=== PATIENT | male | born 1950 | race Caucasian/White ===

== ENCOUNTER 2020-07-15 06:41 | Inpatient (IN) | payer OTHER, SELFPAY ==
[2020-07-15] VITALS (8 sets, daily range): BP systolic 106–145; BP diastolic 61–86; PULSE 74–95; RESP 16–20; TEMP 36.1–37.2; O2SAT 95–99; BMI 35.9; BMI 32.5
--- NOTE | 2020-07-15 06:53 | CT_ITS ---
EXAMINATION: CT ABDOMEN AND PELVIS WITH CONTRAST CLINICAL INFORMATION: Upper abdominal pain COMPARISON: Previous CT of the abdomen and pelvis August 2008 TECHNIQUE: Multidetector volumetric images were obtained from the superior aspect of the liver through the pubic symphysis following administration 85 mL of Omnipaque 350 intravenous contrast. Sagittal and coronal reformatted images were obtained on the technologist's workstation. Oral contrast: Yes This CT examination was performed using dose optimization techniques as appropriate, variously including the following: *Automated exposure control *Adjustment of mA and/or kV according to patient size (this includes techniques or standardized protocols for targeted exams where dose is matched to indication/reason for exam; i.e. extremities or head) *Use of iterative reconstruction technique DLP: 796 mGy-cm FINDINGS: LUNG BASES: There are increased peripheral interstitial markings at the lung bases. There is a right posterior medial diaphragmatic hernia containing fat. LIVER, GALLBLADDER, AND BILIARY TREE: The liver is low in attenuation suggestive of fatty infiltration. There are several low-attenuation liver lesions. The largest measures 1 cm in the posterior segment of the right lobe of the liver axial image 17 series 3. Hounsfield units measure 15 following contrast and is probably represent cysts. The gallbladder is upper normal in size. There are gallstones in the gallbladder. The gallbladder wall appears thickened and indistinct. There is a stranding of the pericholecystic fat. Findings are suggestive of acute cholecystitis. There may be a stone in the cystic duct axial image 25 series 3. Inflammatory changes extend to the griselda hepatis region. No common bile duct stone is appreciated by CT scan. There is no intra or extrahepatic biliary duct dilatation. PANCREAS: Unremarkable. SPLEEN: Unremarkable. ADRENAL GLANDS: Unremarkable. KIDNEYS AND URETERS: There is a 1 cm low-attenuation lesion exophytic to the lower pole of the right kidney axial image 43 series 3. Hounsfield units following contrast measure 55 is not compatible with a simple cyst. Differential would include a solid lesion and complex cyst. There is a 1.2 cm simple appearing cyst in the lower pole of the left kidney. BLADDER: The bladder is well-distended. The prostate gland is enlarged and protrudes into the base of the bladder. GASTROINTESTINAL TRACT: There is diverticulosis of the colon. No evidence of diverticulitis is seen. There are fluid and stool-filled loops of distal small bowel and small bowel feces sign. No caliber changes seen in this probably represents stasis as opposed to mechanical obstruction. Small and large bowel is otherwise unremarkable. The appendix appears to have been removed. The stomach is slightly distended and fluid-filled. ABDOMINAL WALL: There is a small umbilical hernia containing fat. LYMPH NODES: Normal. VASCULAR: There is evidence of atherosclerotic disease. No aneurysm is seen. PELVIC VISCERA: The prostate gland is enlarged and protrudes into the base of the bladder. The prostate gland measures 6.4 x 7.4 cm in transverse and AP dimension. OSSEOUS STRUCTURES: There are degenerative changes of the spine. CT/CT abdomen pelvis w con IMPRESSION: Findings suggestive of acute cholecystitis. This could be confirmed with a HIDA scan or ultrasound if clinically indicated. Fatty liver. Probable liver cysts. 1 cm low-attenuation lesion in the lower pole of the right kidney not compatible with a simple cyst. This may represent a solid renal mass or a complex cyst. Additional renal imaging for further characterization recommended. Small left renal cyst. Enlarged prostate gland that protrudes into the base of the bladder.
--- NOTE | 2020-07-15 06:54 | ECG_ITS ---
Test Reason : ABD PAIN Blood Pressure : / mmHG Vent. Rate : 085 BPM Atrial Rate : 085 BPM P-R Int : 196 ms QRS Dur : 072 ms QT Int : 348 ms P-R-T Axes : 050 025 043 degrees QTc Int : 414 ms Normal sinus rhythm Normal ECG When compared with ECG of 23-AUG-2008 10:27, No significant change was found Referred By: Kianna Ram Electronically Signed By:DESIREE MARTE
--- NOTE | 2020-07-15 07:00 | ED_ITS ---
HPI - Abdominal Pain General Chief Complaint: Abdominal Pain Stated Complaint: UPPER ABD PAIN Time Seen by Provider: 07/15/20 06:52 Source: patient Mode of arrival: ambulatory Limitations: no limitations History of Present Illness MD elicited complaint: abdominal pain Onset (ago): hour(s) (several hours started around 820pm last night) Pain Consistency: constant Location: epigastric, LUQ and RUQ Severity: severe Quality: stabbing Radiation: none Migration to: no migration Exacerbating factors: vomiting and movement Relieving factors: nothing Associated symptoms: nausea and vomiting Related Data Home Medications Medication Instructions Recorded Confirmed empagliflozin [Jardiance] 10 mg PO DAILY 07/15/20 07/15/20 glipizide 1 tab PO BID 07/15/20 07/15/20 lisinopril 10 mg PO DAILY 07/15/20 07/15/20 metformin 1,000 mg PO BID 07/15/20 07/15/20 simvastatin 40 mg PO BEDTIME 07/15/20 07/15/20 Allergies Allergy/AdvReac Type Severity Reaction Status Date / Time No Known Allergies Allergy Mild NKA Unverified 04/25/20 15:10 Review of Systems Review of Systems Constitutional : No Weight loss, No Fever, No Chills ENT/Mouth : No sore throat, No Rhinorrhea Eyes: No Swelling, No Redness Cardiovascular : No Chest Pain, No SOB, NoEdema Respiratory : No Cough, No Sputum, No Wheezing Gastrointestinal : Positive Nausea, Positive Vomiting, no Diarrhea, positive abdominal Pain, No Hematochezia, No Melena Genitourinary : No Dysuria, No Urinary Frequency, No Hematuria, No Urgency Musculoskeletal : No joint pain, No Myalgias, No Joint Swelling Skin : No Skin Lesions, No rash Neuro : No Weakness, No Numbness, No Dizziness, No Headache Psych : No Anxiety/Panic, No Depression Heme/Lymph: No Bruising, No Lymphadenopathy Endocrine : No Polyuria, No Polydipsia All other systems reviewed and are negative. Physical Exam Vital Signs: Vital Signs: Last Vital Signs Temp 97 F 07/15/20 06:44 Pulse 82 07/15/20 08:13 Resp 16 07/15/20 08:13 BP 145/74 H 07/15/20 06:44 Pulse Ox 97 07/15/20 08:13 Body Mass Index 35.9 Appearance: Alert. Oriented X3. in pain, mild acute distress Eyes: Pupils equal, round and reactive to light. ENT: Pharynx normal. Neck: Normal inspection. Neck supple. CVS: Normal heart rate and rhythm. Pulses normal. Respiratory: No respiratory distress. Breath sounds normal. Abdomen: Soft and moderate ttp in RUQ and epigastric pain positive guarding no rebound Skin: Skin warm and dry. Normal skin color. Normal skin turgor. Extremities: No lower extremity edema. No calf ttp Neuro: Oriented X 3. No motor deficit. No sensory deficit. Course Course Course Narrative: given markedly high WBC count, empiric zosyn ordered call to surgery 841 AM given initial review of his CT scan concerning for cholecystitis - pending call back, patient has been kept NPO, doing better with pain medications. 916AM Dr. Sanchez requesting US will admit for further management MDM - Abdominal Pain MDM Narrative Medical decision making narrative: 69 yo male with HTN, DM hx of appendectomy has upper abdominal pain with vomiting since last night - very ttp in epigastric and RUQ area at this time will need labs, EKG, IVF, CT scan to evaluate GB and pancreas, IV dilaudid for pain - dispo per results and findings. Differential Diagnosis Differential diagnosis: Likely abdominal pain, gastritis, pancreatitis and peptic ulcer disease Lab Data Result diagrams: 07/15/20 07:08 07/15/20 07:08 Labs: Lab Results 07/15/20 07/15/20 07/15/20 Range/Units 07:08 07:08 07:08 WBC 23.2 H (4.8-10.8) X10*3/uL RBC 5.79 (4.60-5.80) X10*6/uL Hgb 17.9 (14.0-18.0) g/dl Hct 52.4 H (42-52) % MCV 90.5 (80-98) fL MCH 30.9 (27.0-33.0) pg MCHC 34.2 (31.0-36.0) g/dl RDW 12.9 (11.0-16.0) % Plt Count 277 (160-400) X10*3/uL MPV 9.8 (9.4-12.4) fL Immature Gran % (Auto) 0.5 H (0.0-0.4) % Neut % (Auto) 89.7 H (45-73) % Lymph % (Auto) 3.4 L (20-40) % Citrus % (Auto) 6.2 (2-11) % Eos % (Auto) 0.0 (0-4) % Baso % (Auto) 0.2 (0-2) % Lymph # (Auto) 0.8 L (1.2-4.9) X10*3/uL [place] # (Auto) 1.4 H (0.1-1.2) X10*3/uL Eos # (Auto) 0.0 (0.0-0.4) X10*3/uL Baso # (Auto) 0.0 (0.0-0.2) X10*3/uL Abs Immat Gran (auto) 0.12 H (0.00-0.03) X10*3/uL Absolute Neuts (auto) 20.8 H (2.0-8.3) X10*3/uL Absolute Nucleated RBC 0.000 (0.0-0.012) X10*3/uL Nucleated RBC % (auto) 0.0 (0.0-0.2) /100WBC Smear Tech's Comments VERIFIED PT 12.0 (10.8-13.0) SEC INR 1.0 (0.9-1.1) APTT 35.5 (24.1-38.0) SEC Sodium 138 (135-145) mmol/L Potassium 4.9 (3.3-5.1) mmol/l Chloride 97 (96-108) mmol/L Carbon Dioxide 27 (22-29) mmol/L Anion Gap 19 (12-20) BUN 21 H (9-16) mg/dL Creatinine 1.34 (0.5-1.4) mg/dL Estim Creat Clear Calc 63.7 Estimated GFR 53 Random Glucose 240 H (60-115) mg/dL Lactic Acid (0.5-2.0) mmol/L Calcium 9.7 (8.4-10.2) mg/dL Magnesium (1.6-2.6) mg/dL Total Bilirubin (0.0-1.0) mg/dL Direct Bilirubin (0.0-0.5) mg/dL AST (5-37) U/L ALT (0-40) U/L Alkaline Phosphatase (39-117) U/L Troponin I High Sens (<3.5-35.0) ng/L Total Protein (6.5-8.0) g/dL Albumin (3.5-5.0) g/dL Lipase (8-78) U/L 07/15/20 07/15/20 07/15/20 Range/Units 07:08 07:08 07:08 WBC (4.8-10.8) X10*3/uL RBC (4.60-5.80) X10*6/uL Hgb (14.0-18.0) g/dl Hct (42-52) % MCV (80-98) fL MCH (27.0-33.0) pg MCHC (31.0-36.0) g/dl RDW (11.0-16.0) % Plt Count (160-400) X10*3/uL MPV (9.4-12.4) fL Immature Gran % (Auto) (0.0-0.4) % Neut % (Auto) (45-73) % Lymph % (Auto) (20-40) % Citrus % (Auto) (2-11) % Eos % (Auto) (0-4) % Baso % (Auto) (0-2) % Lymph # (Auto) (1.2-4.9) X10*3/uL [place] # (Auto) (0.1-1.2) X10*3/uL Eos # (Auto) (0.0-0.4) X10*3/uL Baso # (Auto) (0.0-0.2) X10*3/uL Abs Immat Gran (auto) (0.00-0.03) X10*3/uL Absolute Neuts (auto) (2.0-8.3) X10*3/uL Absolute Nucleated RBC (0.0-0.012) X10*3/uL Nucleated RBC % (auto) (0.0-0.2) /100WBC Smear Tech's Comments PT (10.8-13.0) SEC INR (0.9-1.1) APTT (24.1-38.0) SEC Sodium (135-145) mmol/L Potassium (3.3-5.1) mmol/l Chloride (96-108) mmol/L Carbon Dioxide (22-29) mmol/L Anion Gap (12-20) BUN (9-16) mg/dL Creatinine (0.5-1.4) mg/dL Estim Creat Clear Calc Estimated GFR Random Glucose (60-115) mg/dL Lactic Acid 2.6 H* (0.5-2.0) mmol/L Calcium (8.4-10.2) mg/dL Magnesium 2.1 (1.6-2.6) mg/dL Total Bilirubin 1.4 H (0.0-1.0) mg/dL Direct Bilirubin 0.4 (0.0-0.5) mg/dL AST 24 (5-37) U/L ALT 36 (0-40) U/L Alkaline Phosphatase 79 (39-117) U/L Troponin I High Sens < 3.5 (<3.5-35.0) ng/L Total Protein 7.6 (6.5-8.0) g/dL Albumin 4.5 (3.5-5.0) g/dL Lipase 41 (8-78) U/L ECG Data Attestation: I personally reviewed and interpreted this ECG as follows: ECG interpretation date: 07/15/20 ECG interpretation time: 07:25 Interpretation: Rate: 85 Rhythm: NSR [place]: normal Normal P waves. Normal BELÉN. Normal QRS complex. ST T wave : normal , no DEJAN qTC: normal prior studies: no acute ischemia The study has been interpreted contemporaneously by me. . Critical Care Time Critical Care Time Critical Care Time: Yes Total Critical Care Time: 35 Attestation: 2 L of IVF, IV antibiotics, IV dilaudid, surgical consultation. I attest to this time spent taking care of the patient Discharge Plan Discharge Clinical Impression: Acidosis, lactic, Acute cholecystitis Abdominal pain Qualifiers: Abdominal location: right upper quadrant Qualified Code(s): R10.11 - Right upper quadrant pain Leukocytosis Qualifiers: Leukocytosis type: unspecified Qualified Code(s): D72.829 - Elevated white blood cell count, unspecified Patient Disposition: Admitted As Inpatient [facility] Past Medical History Attestation statement: The following information was validated with the patient. Medical History Bilateral knee pain Diabetes HTN (hypertension) Surgical History History of appendectomy Social History Social History (Updated 07/15/20 @ 07:02 by Kianna Ram DO) Alcohol intake: current Alcohol intake frequency: 3 or more drinks per day Alcohol type: beer Smoking Status: Former smoker Use of substances other than those prescribed or required for medical reasons: No Advance Directives: No Advance Directives Information Provided: No
[2020-07-15] MEDS: 0.9 % Sodium Chloride 1,000 ML 999 ML IVCONT ×2 (07:16→08:12)
[2020-07-15] MEDS: ondansetron HCL 4 MG/2 ML VIAL IVPUSH (07:16)
[2020-07-15] MEDS: HYDROmorphone HCl 1 MG/ML SYRINGE IVPUSH ×2 (07:16→10:30)
[2020-07-15 07:17] LABS: Basophils Percent Auto 0.2 % (0-2); Hematocrit 52.4 % (42-52); Hemoglobin 17.9 g/dl (14.0-18.0); Imm Gran Abs Auto 0.12 X10*3/uL (0.00-0.03); Imm Gran Pct Auto 0.5 % (0.0-0.4); Lymphocytes Absolute Auto 0.8 X10*3/uL (1.2-4.9); Lymphocytes Percent Auto 3.4 % (20-40); MANUAL DIFF FLAG SCAN; Mean Corpuscular HGB Conc 34.2 g/dl (31.0-36.0); Mean Corpuscular Hemoglobin 30.9 pg (27.0-33.0); Mean Corpuscular Volume 90.5 fL (80-98); Mean Platelet Volume 9.8 fL (9.4-12.4); Monocytes Absolute Auto 1.4 X10*3/uL (0.1-1.2); Monocytes Percent Auto 6.2 % (2-11); Neutrophils Absolute Auto 20.8 X10*3/uL (2.0-8.3); Neutrophils Percent Auto 89.7 % (45-73); Platelet Count 277 X10*3/uL (160-400); Red Blood Count 5.79 X10*6/uL (4.60-5.80); Red Cell Distribution Width 12.9 % (11.0-16.0); SCAN SMEAR FLAG 1; White Blood Count 23.2 X10*3/uL (4.8-10.8)
[2020-07-15 07:40] LABS: Partial Thromboplastin Time 35.5 SEC (24.1-38.0)
[2020-07-15 07:45] LABS: SLIDE REVIEW VERIFIED
[2020-07-15 07:47] LABS: Anion Gap 19 (12-20); Blood Urea Nitrogen 21 mg/dL (9-16); Calcium 9.7 mg/dL (8.4-10.2); Carbon Dioxide 27 mmol/L (22-29); Chloride 97 mmol/L (96-108); Creatinine Clr Calc Pharmacy 63.7; Estimated Glomerular Filt Rate 53; Glucose Random 240 mg/dL (60-115); Potassium 4.9 mmol/l (3.3-5.1); Sodium 138 mmol/L (135-145)
[2020-07-15 07:50] LABS: Alanine Aminotransferase 36 U/L (0-40); Albumin Level 4.5 g/dL (3.5-5.0); Alkaline Phosphatase 79 U/L (39-117); Aspartate Amino Transferase 24 U/L (5-37); Bilirubin Direct 0.4 mg/dL (0.0-0.5); Bilirubin Total 1.4 mg/dL (0.0-1.0); Lipase 41 U/L (8-78); Magnesium 2.1 mg/dL (1.6-2.6); Total Protein 7.6 g/dL (6.5-8.0)
[2020-07-15 07:52] LABS: Troponin-I High Sensitivity < 3.5 ng/L (<3.5-35.0)
[2020-07-15] MEDS: Piperacillin Sodium/Tazobactam 3.375 GM in 0.9 % Sodium Chloride 50 ML IV ×2 (07:54→18:14)
[2020-07-15 08:04] LABS: Lactic Acid 2.6 mmol/L (0.5-2.0)
--- NOTE | 2020-07-15 08:13 | PC.NURSE ---
pt sts feeling better after pain medication. awaiting ct scan.
[2020-07-15] MEDS: iohexoL 350 MG/ML 100 ML INFUS..BTL 85 ML IV (08:42)
--- NOTE | 2020-07-15 09:11 | PC.NURSE ---
general surgeon at bedside for eval.
[2020-07-15 09:12] LABS: Reflex Lactate? Lactic Acid Added
--- NOTE | 2020-07-15 09:14 | US_ITS ---
EXAMINATION: US ABDOMEN LIMITED CLINICAL INFORMATION: Reading cord pain.. COMPARISON: None TECHNIQUE: Real-time imaging of the right upper quadrant abdominal viscera. FINDINGS: PANCREAS: Pancreas is obscured by overlying gas. LIVER: There is anechoic cyst right lobe measuring 1.2 x 1.2 x 1.2 cm. The liver size and contour is normal. There is diffuse increased liver echogenicity hard to penetrate.No focal hepatic lesion. There is no intrahepatic biliary duct dilatation seen. GALLBLADDER: A small echogenic stones and echogenic bile. Gallbladder wall thickness measures 0.9 cm. There is pericholecystic fluid collection. The gallbladder is distended COMMON BILE DUCT: Normal in caliber measuring 1.0 cm in diameter. RIGHT KIDNEY: Normal. No hydronephrosis. No renal calculi or focal parenchymal lesions. The kidney measures 11.8 cm in maximum dimension. FREE FLUID: None. US/US abdomen limited IMPRESSION: Cholelithiasis, echogenic gallbladder with with wall thickening and pericholecystic fluid collection suggestive of cholecystitis. Correlate with clinical exam. Diffuse hepatic steatosis with small anechoic cyst right hepatic lobe. Pancreas is not seen well.
[2020-07-15 09:17] LABS: COVID-19 Test Negative (Negative); IDNOW Serial# 9DD0AD1C
[2020-07-15 09:37] LABS: Glucose Urine UA >=1000 MG/DL (NEG); Leukocyte Esterase Urine NEG (NEG); Nitrite Urine NEG (NEG); Specific Gravity - Urine <= 1.005 (1.005-1.025); Urine Blood NEG (NEG); Urine Ketones NEG (NEG); Urine Protein NEG (NEG-TRACE)
[2020-07-15 09:46] LABS: Appearance Urine CLEAR; Color Urine YELLOW
[2020-07-15 09:59] LABS: RBC Urine 0 /HPF (0); Squamous Epithelial Cell Urine TRACE /LPF; WBC Urine 0 /HPF (0-4)
--- NOTE | 2020-07-15 10:15 | P.HPGS_ITS ---
History of Present Illness History of Present Illness Date of Service: 07/15/20 Chief complaint: UPPER ABD PAIN Narrative: Selvin Pereira JR is a 69 year old male presenting with complaints of abdominal pain in the upper abdomen starting last evening at approximately 20:00. He reports the pain started after eating dinner several hours prior. He reports several episodes of nausea and vomiting including upon presentation to the emergency department. He denies a previous history of similar symptoms. Upon presentation to the emergency department he was noted to be tender in the right upper quadrant. WBC was noted to be markedly elevated. A CT of the abdomen and pelvis revealed thickened gallbladder with gallstones within the gallbladder. A stone was noted in the cystic duct but the common bile duct was felt to be normal in size. Patient is admitted to the surgical service for further management of acute cholecystitis. Review of Systems Constitutional: Constitutional: Denies chills, Denies fever(s), Denies headache(s) and Denies poor appetite ENT: Denies dizziness and Denies headache(s) Cardiovascular: Cardiovascular: Denies chest pain, Denies rapid heart rate, Denies palpitations and Denies slow heart rate Respiratory: Respiratory: Denies chest congestion, Denies cough, Denies pain on inspiration and Denies wheezing Gastrointestinal: Gastrointestinal: Reports abdominal pain, Denies bloating, Denies change in stool character, Denies constipation, Denies diarrhea, Reports nausea, Reports vomiting and Denies hematemesis Musculoskeletal: Musculoskeletal: Denies back pain, Denies arthralgias, Denies joint swelling and Denies numbness Integumentary/Breasts: Skin/Breast: Denies change in pigmentation, Denies erythema and Denies rash Neurologic: Denies confusion, Denies dizziness, Denies headache(s) and Denies numbness Psychiatric: Psychiatric: Denies anxiety, Denies confusion and Denies depression Endocrine: Endocrine: Denies palpitations Hematologic/Lymphatic: Hematologic/Lymphatic: Denies easy bleeding, Denies easy bruising and Denies lymphadenopathy Allergic/Immunologic: Allergic/Immunologic: Denies wheezing PMFSH Past Medical History Medical History Bilateral knee pain Diabetes HTN (hypertension) Surgical History Surgical History History of appendectomy History of bilateral knee arthroplasty Social History Social History Alcohol intake: current Alcohol intake frequency: 3 or more drinks per day Alcohol type: beer Smoking Status: Former smoker Use of substances other than those prescribed or required for medical reasons: No Advance Directives: No Advance Directives Information Provided: No Meds Allergies Allergy/AdvReac Type Severity Reaction Status Date / Time No Known Allergies Allergy Mild NKA Unverified 04/25/20 15:10 Home Medications Medication Instructions Recorded Confirmed Type empagliflozin [Jardiance] 10 mg PO DAILY 07/15/20 07/15/20 History glipizide 1 tab PO BID 07/15/20 07/15/20 History lisinopril 10 mg PO DAILY 07/15/20 07/15/20 History metformin 1,000 mg PO BID 07/15/20 07/15/20 History simvastatin 40 mg PO BEDTIME 07/15/20 07/15/20 History Physical Exam Vital Signs: Vital Signs: Last Vital Signs Temp 97 F 07/15/20 06:44 Pulse 82 07/15/20 08:13 Resp 16 07/15/20 08:13 BP 145/74 H 07/15/20 06:44 Pulse Ox 97 07/15/20 08:13 Body Mass Index 35.9 Const: General: No confusion Nutritional Appearance: well nourished Orientation/consciousness: No confusion Eyes: Sclerae: sclerae normal EOM: EOMs intact bilaterally Neck: Neck: Yes normal visual inspection Resp: Effort & Inspection: normal respiratory effort, no cough and no respiratory distress Cardio: Jugular venous distension: no JVD Rate: regular rate Rhythm: regular rhythm GI: Inspection: Yes normal to inspection Palpation (GI): Soft to palpation, Tenderness to palpation present (GI) in the RUQ and Gudino's sign positive, no guarding and not rigid Percussion: Yes normal to percussion Auscultation: normal bowel sounds Skin: General skin exam: dry skin Rashes: no rashes Neuro: General: No confusion Extrem: General: Yes full ROM and Yes no clubbing, cyanosis or edema Results Results Labs: Short CBC 07/15/20 Range/Units 07:08 WBC 23.2 H (4.8-10.8) X10*3/uL Hgb 17.9 (14.0-18.0) g/dl Hct 52.4 H (42-52) % Plt Count 277 (160-400) X10*3/uL BMP 07/15/20 07:08 Sodium 138 Potassium 4.9 Chloride 97 Carbon Dioxide 27 BUN 21 H Creatinine 1.34 Calcium 9.7 Liver Function 07/15/20 Range/Units 07:08 Total Bilirubin 1.4 H (0.0-1.0) mg/dL Direct Bilirubin 0.4 (0.0-0.5) mg/dL AST 24 (5-37) U/L ALT 36 (0-40) U/L Alkaline Phosphatase 79 (39-117) U/L Albumin 4.5 (3.5-5.0) g/dL Urine 07/15/20 Range/Units 09:26 Urine Color YELLOW Urine Appearance CLEAR Urine pH 7.0 (5.0-8.0) Ur Specific [place] <= 1.005 (1.005-1.025) Urine Protein NEG (NEG-TRACE) MG/DL Urine Glucose (UA) >=1000 H (NEG) MG/DL Assessment and Plan (1) Acute cholecystitis: Status: Acute 69-year-old male patient presenting with complaints of abdominal pain in the right upper quadrant found to be tender in the right upper quadrant with a positive Gudino sign. Findings are suggestive of acute cholecystitis. CT of the abdomen and pelvis reveals a thickened gallbladder with stones within the gallbladder. An ultrasound will be ordered to further evaluate the wall thickness. Patient will be admitted to the surgical service for further management. He will be placed on Zosyn 3.75 mg q.6 hours. Hospitalist consultation will be requested for management of patient's diabetes. A laparoscopic or possible open cholecystectomy would be anticipated in the next 1-2 days.
--- NOTE | 2020-07-15 10:40 | PM.IMCN ---
History of Present Illness Data of Consult Service Date: 07/15/20 Requesting physician: Edilson Sanchez Primary Care Provider: MD MEENAKSHI Song Reason for consult: Medical Management 69 year old man with history of diabetes, hypertension and hyperlipidemia admitted by general surgery for acute cholecystitis. He presented with abdominal pain especially after eating. He developed pain around 8pm and had episodes of nausea and vomiting. Abdominal CT was suggestive of acute cholecystitis. WBC 23.2, lactic 2.6. He was given Zosyn and will be transferred to the medical floor. Review of Systems Review of Systems: Denies any recent fever chills or decrease in appetite respiratory denies any shortness of breath coverage production cardiovascular is adjustment of any PND or edema gastrointestinal see above genitourinary denies any dysuria frequency or hematuria musculoskeletal denies any joint pain or swelling neuropsych denies any weakness or seizures all other systems reviewed are negative Constitutional: Constitutional: Denies headache(s) ENT: Denies dizziness and Denies headache(s) Musculoskeletal: Musculoskeletal: Denies numbness Neurologic: Denies confusion, Denies dizziness, Denies headache(s) and Denies numbness Psychiatric: Psychiatric: Denies confusion [facility] Medical History (Updated 07/15/20 @ 11:14 by Christelle Roca NP) Bilateral knee pain Diabetes HTN (hypertension) Hyperlipidemia Surgical History History of appendectomy History of bilateral knee arthroplasty Social History Alcohol intake: current Alcohol intake frequency: 3 or more drinks per day Alcohol type: beer Smoking Status: Former smoker Use of substances other than those prescribed or required for medical reasons: No Advance Directives: No Advance Directives Information Provided: No Meds Allergies Allergy/AdvReac Type Severity Reaction Status Date / Time No Known Allergies Allergy Mild NKA Unverified 04/25/20 15:10 Home Medications Medication Instructions Recorded Confirmed Type empagliflozin [Jardiance] 10 mg PO DAILY 07/15/20 07/15/20 History glipizide 1 tab PO BID 07/15/20 07/15/20 History lisinopril 10 mg PO DAILY 07/15/20 07/15/20 History metformin 1,000 mg PO BID 07/15/20 07/15/20 History simvastatin 40 mg PO BEDTIME 07/15/20 07/15/20 History Physical Exam Vital Signs and Narrative: Vital Signs: Last Vital Signs Temp 97 F 07/15/20 06:44 Pulse 82 07/15/20 08:13 Resp 16 07/15/20 08:13 BP 145/74 H 07/15/20 06:44 Pulse Ox 97 07/15/20 08:13 Body Mass Index 35.9 Appearing in no acute distress head is normocephalic atraumatic eyes pupils are PERRLA sclera is anicteric mouth throat mucous membranes are intact and moist neck is supple no lymphadenopathy, no JVD noted lung sounds are clear to auscultation heart regular rate rhythm, clear S1, S2 positive bowel sounds, abdomen is soft, nontender neuro patient is alert x3, no focal deficits Const: General: No confusion Orientation/consciousness: No confusion Neuro: General: No confusion Results Labs CBC and Chem 7: 07/15/20 07:08 07/15/20 07:08 Labs: Laboratory Results - last 24 hr 07/15/20 07/15/20 07/15/20 07:08 07:08 07:08 MCV 90.5 MCH 30.9 MCHC 34.2 RDW 12.9 Plt Count 277 MPV 9.8 Immature Gran % (Auto) 0.5 H Neut % (Auto) 89.7 H Lymph % (Auto) 3.4 L [place] % (Auto) 6.2 Eos % (Auto) 0.0 Baso % (Auto) 0.2 Lymph # (Auto) 0.8 L [place] # (Auto) 1.4 H Eos # (Auto) 0.0 Baso # (Auto) 0.0 Abs Immat Gran (auto) 0.12 H Absolute Neuts (auto) 20.8 H Absolute Nucleated RBC 0.000 Nucleated RBC % (auto) 0.0 Smear Tech's Comments VERIFIED PT 12.0 INR 1.0 APTT 35.5 Anion Gap 19 Estim Creat Clear Calc 63.7 Estimated GFR 53 Random Glucose 240 H Lactic Acid Lactic Acid Fup @ 2Hr Calcium 9.7 Magnesium Total Bilirubin Direct Bilirubin AST ALT Alkaline Phosphatase Troponin I High Sens Total Protein Albumin Lipase Urine Color Urine Appearance Urine pH Ur Specific [place] Urine Protein Urine Glucose (UA) Urine Ketones Urine Blood Urine Nitrite Ur Leukocyte Esterase Urine RBC Urine WBC Ur Squamous Epith Cells Urine Bacteria COVID-19 (BABATUNDE) COVID-19 Clin Com 07/15/20 07/15/20 07/15/20 07:08 07:08 07:08 MCV MCH MCHC RDW Plt Count MPV Immature Gran % (Auto) Neut % (Auto) Lymph % (Auto) [place] % (Auto) Eos % (Auto) Baso % (Auto) Lymph # (Auto) [place] # (Auto) Eos # (Auto) Baso # (Auto) Abs Immat Gran (auto) Absolute Neuts (auto) Absolute Nucleated RBC Nucleated RBC % (auto) Smear Tech's Comments PT INR APTT Anion Gap Estim Creat Clear Calc Estimated GFR Random Glucose Lactic Acid 2.6 H* Lactic Acid Fup @ 2Hr Calcium Magnesium 2.1 Total Bilirubin 1.4 H Direct Bilirubin 0.4 AST 24 ALT 36 Alkaline Phosphatase 79 Troponin I High Sens < 3.5 Total Protein 7.6 Albumin 4.5 Lipase 41 Urine Color Urine Appearance Urine pH Ur Specific [place] Urine Protein Urine Glucose (UA) Urine Ketones Urine Blood Urine Nitrite Ur Leukocyte Esterase Urine RBC Urine WBC Ur Squamous Epith Cells Urine Bacteria COVID-19 (BABATUNDE) COVID-19 Clin Com 07/15/20 07/15/20 07/15/20 08:46 09:26 09:33 MCV MCH MCHC RDW Plt Count MPV Immature Gran % (Auto) Neut % (Auto) Lymph % (Auto) [place] % (Auto) Eos % (Auto) Baso % (Auto) Lymph # (Auto) [place] # (Auto) Eos # (Auto) Baso # (Auto) Abs Immat Gran (auto) Absolute Neuts (auto) Absolute Nucleated RBC Nucleated RBC % (auto) Smear Tech's Comments PT INR APTT Anion Gap Estim Creat Clear Calc Estimated GFR Random Glucose Lactic Acid Lactic Acid Fup @ 2Hr 2.0 Calcium Magnesium Total Bilirubin Direct Bilirubin AST ALT Alkaline Phosphatase Troponin I High Sens Total Protein Albumin Lipase Urine Color YELLOW Urine Appearance CLEAR Urine pH 7.0 Ur Specific [place] <= 1.005 Urine Protein NEG Urine Glucose (UA) >=1000 H Urine Ketones NEG Urine Blood NEG Urine Nitrite NEG Ur Leukocyte Esterase NEG Urine RBC 0 Urine WBC 0 Ur Squamous Epith Cells TRACE Urine Bacteria NONE COVID-19 (BABATUNDE) Negative COVID-19 Clin Com See Note Imaging Radiologist's Impressions: Impressions Abdomen/Pelvis CT 07/15/20 06:53 IMPRESSION: Findings suggestive of acute cholecystitis. This could be confirmed with a HIDA scan or ultrasound if clinically indicated. Fatty liver. Probable liver cysts. 1 cm low-attenuation lesion in the lower pole of the right kidney not compatible with a simple cyst. This may represent a solid renal mass or a complex cyst. Additional renal imaging for further characterization recommended. Small left renal cyst. Enlarged prostate gland that protrudes into the base of the bladder. Assessment and Plan (1) Abdominal pain: Qualifiers: Abdominal location: right upper quadrant Qualified Code(s): R10.11 - Right upper quadrant pain Status: Acute (2) Acute cholecystitis: Status: Acute Admitted by General surgery for acute cholecystitis. Will be treated with IV antibiotics for now and likely go to the or within the next 1-2 days. Acute cholecystitis. Management as per surgical team. Zosyn, pain management. Leukocytosis and lactic acidosis. No sepsis. Due to acute magalys. Trend. Diabetes mellitus. Sliding scale, ADA diet. Hypertension. Stable blood pressure. Continue lisinopril. Hyperlipidemia. Hold statin for now. DVT prophylaxis as per surgical team. Case discussed with Dr. Bass Full code
--- NOTE | 2020-07-15 15:24 | PC.NURSE ---
pt moved to hallway bed while awaiting transport, first call for report unsuccessful.
--- NOTE | 2020-07-15 15:56 | PC.NURSE ---
second call for report unsuccessful. nurse will call back when available.
--- NOTE | 2020-07-15 16:32 | PC.NURSE ---
report given to s3 rn shahida
--- NOTE | 2020-07-15 17:05 | PM.EVENT ---
Event Note Date of Service: 07/15/20 Event Note: addendum to consult note by JO Roca 07/15/20 I interviewed and examined the patient. I discussed their presentation and management with the mid-level provider. I reviewed the history and physical and agree with the documentation, with the following additions and corrections: 69yo M with NIDDM, HTN, HLD presenting with acute RUQ pain after eating roast pork dinner admitted to gen surg service with acute cholecystitis initial LA >2, WBC elevated, but not technically septic by VS criteria no prior hx of [place] or CVA prior PSHx bilateral knee replacements, appendectomy, no perioperative complications drinks 3 servings EtOH/d, no hx withdrawal exam notable only for RUQ tenderness plan to follow along with surgical team, lap vs open cholecystectomy in 1-2 d, continue pip/dario, hold OHGs for DM and cover with low-dose lispro, continue lisinopril + statin, give IV fluids
[2020-07-15] MEDS: 0.9 % Sodium Chloride Flush 3 ML SYRINGE IVFLUSH (18:15)
[2020-07-15 18:26] LABS: Glucose, Whole Blood 138 mg/dL (60-115)
[2020-07-15] MEDS: Lactated Ringers 1,000 ML 125 ML IVCONT (18:51)
[2020-07-15] MEDS: oxyCODONE HCl Immed Release 5 MG TABLET PO (19:19)
[2020-07-15 20:57] LABS: Glucose, Whole Blood 186 mg/dL (60-115)
[2020-07-15] MEDS: Atorvastatin Calcium 20 MG TABLET PO (21:09)
[2020-07-15] MEDS: Insulin Lispro 100 UNIT/ML 3 ML VIAL SUBCUT (21:09)
[2020-07-16] VITALS (14 sets, daily range): BP systolic 109–169; BP diastolic 65–83; PULSE 77–100; RESP 12–20; TEMP 36.1–37.5; O2SAT 92–98; BMI 32.5
[2020-07-16] MEDS: Piperacillin Sodium/Tazobactam 3.375 GM in 0.9 % Sodium Chloride 50 ML IV ×3 (00:24→18:12)
[2020-07-16] MEDS: 0.9 % Sodium Chloride Flush 3 ML SYRINGE IVFLUSH ×2 (00:24→15:47)
[2020-07-16] MEDS: Lactated Ringers 1,000 ML 125 ML IVCONT ×3 (02:56→23:02)
[2020-07-16 06:45] LABS: Hematocrit 48.9 % (42-52); Hemoglobin 16.2 g/dl (14.0-18.0); Mean Corpuscular HGB Conc 33.1 g/dl (31.0-36.0); Mean Corpuscular Hemoglobin 30.3 pg (27.0-33.0); Mean Corpuscular Volume 91.6 fL (80-98); Mean Platelet Volume 10.1 fL (9.4-12.4); Platelet Count 239 X10*3/uL (160-400); Red Blood Count 5.34 X10*6/uL (4.60-5.80); Red Cell Distribution Width 13.2 % (11.0-16.0); White Blood Count 21.8 X10*3/uL (4.8-10.8)
[2020-07-16 07:15] LABS: Anion Gap 16 (12-20); Blood Urea Nitrogen 19 mg/dL (9-16); Calcium 8.3 mg/dL (8.4-10.2); Carbon Dioxide 22 mmol/L (22-29); Chloride 103 mmol/L (96-108); Creatinine Clr Calc Pharmacy 75.4; Estimated Glomerular Filt Rate > 60; Glucose Random 125 mg/dL (60-115); Potassium 4.2 mmol/l (3.3-5.1); Sodium 137 mmol/L (135-145)
--- NOTE | 2020-07-16 07:25 | PM.PNGS ---
Subjective Subjective Date of Service: 07/16/20 Interval history: Feels improved with decreased abdominal pain; no further nausea or vomiting overnight Physical Exam Vital Signs: Vital Signs: Last Vital Signs Temp 98.1 F 07/16/20 04:00 Pulse 85 07/16/20 04:00 Resp 20 07/16/20 04:00 BP 126/71 07/16/20 04:00 Pulse Ox 96 07/16/20 04:00 Body Mass Index 32.5 Const: General: cooperative, healthy appearing, comfortable and no acute distress Eyes: General: appearance normal, both eyes and all related structures Sclerae: sclerae normal Resp: Effort & Inspection: normal respiratory effort, no cough and no respiratory distress Auscultation: no wheezes GI: Inspection: Yes normal to inspection Palpation (GI): Tenderness to palpation present (GI) in the RUQ and Gudino's sign positive; with no rebound tenderness Skin: General skin exam: no rashes or lesions noted Extrem: General: Yes full ROM, Yes capillary refill normal, Yes no clubbing, cyanosis or edema and Yes no calf tenderness Progress Note: A&P Assessment and plan (1) Acute cholecystitis: Status: Acute Assessment and Plan: Patient presenting with acute onset of abdominal pain, nausea and vomiting, found to have a thickened gallbladder with gallstones suggestive of acute cholecystitis. Patient's WBC decreased but still elevated. Continue Zosyn. I recommended a laparoscopic or possible open cholecystectomy and after a discussion of the procedure, alternatives and risks, he consents to the surgery. He will be added on to the OR schedule for today. Fall Risk Details Current Medications: Current Medications Generic Name Dose Route Start Last Admin Trade Name José Antonio PRN Reason Stop Dose Admin Acetaminophen 650 mg 07/15/20 17:27 Acetaminophen 325 Mg Tablet PO Q6H PRN Pain, Mild (Pain Scale 1-3) Atorvastatin Calcium 20 mg 07/15/20 21:00 07/15/20 21:09 Atorvastatin Calcium 20 Mg Tablet PO 20 mg BEDTIME SABINE Administration Piperacillin Sod/Tazobactam 50 mls @ 100 mls/hr 07/15/20 18:00 07/16/20 06:25 Sod 3.375 gm/ Sodium Chloride IV Infused Q6H SABINE Infusion Lactated Ringer's 1,000 mls @ 125 mls/hr 07/15/20 17:27 07/16/20 06:25 Lr IVCONT 125 mls/hr .Q8H [facility] Infusion Insulin Human Lispro 0 unit 07/15/20 17:27 07/15/20 21:09 Insulin Lispro 100 Unit/Ml 3 Ml Vial SUBCUT 2 unit QIDACHS SABINE Administration Protocol Lisinopril 10 mg 07/16/20 09:00 Lisinopril 10 Mg Tablet PO DAILY [facility] Protocol Magnesium Hydroxide 30 ml 07/15/20 17:27 Milk Of Magnesia 30 Ml Oral.Susp PO DAILY PRN Constipation Morphine Sulfate 4 mg 07/15/20 17:27 Morphine Sulfate 4 Mg/Ml Cartridge IVPUSH Q3H PRN Pain, Severe (Pain Scale 7-10) Oxycodone HCl 5 mg 07/15/20 17:27 07/15/20 19:19 Oxycodone Hcl Immed Release 5 Mg Tablet PO 5 mg Q6H PRN Administration Pain, Moderate (Pain Scale 4-6 Pharmacy Consult 1 each 07/15/20 07:49 Consult Rx Perform Med Rec MISCELLANE ONCE PRN Consult order Sodium Chloride 3 ml 07/15/20 17:27 07/16/20 00:24 0.9 % Sodium Chloride Flush 3 Ml Syringe IVFLUSH 3 ml QSHIFT [facility] Administration Zolpidem Tartrate 5 mg 07/15/20 17:27 Zolpidem Tartrate 5 Mg Tablet PO BEDTIME PRN Insomnia Time Spent With Patient Time: Total time spent is greater than 50% in coordination of care (as documented) at patient's floor/unit and/or counseling patient: Time with patient: 15 - 24 minutes
[2020-07-16] MEDS: oxyCODONE HCl Immed Release 5 MG TABLET PO ×2 (07:44→15:16)
[2020-07-16 08:32] LABS: Glucose, Whole Blood 128 mg/dL (60-115)
[2020-07-16 09:43] LABS: Estimated Average Glucose 174 mg/dL; Hemoglobin A1c % 7.7 %
[2020-07-16 10:58] LABS: Glucose, Whole Blood 107 mg/dL (60-115)
--- NOTE | 2020-07-16 11:05 | HO.PM.IMPN ---
Subjective Subjective Date of Service: 07/16/20 Interval History: ongoing RUQ pain no fever/chills/vomiting planned cholecystectomy today at noon Physical Exam Vital Signs: Vital Signs: Last Vital Signs Temp 98.7 F 07/16/20 10:56 Pulse 100 07/16/20 10:56 Resp 16 07/16/20 10:56 BP 169/83 H 07/16/20 10:56 Pulse Ox 95 07/16/20 10:56 Body Mass Index 32.5 Gen: in no acute distress HEENT: sclera anicteric, moist mucus membranes Neck: supple Lungs: clear to auscultation bilaterally Heart: regular rate and rhythm, no murmurs Abd: soft, RUQ tender, non-distended Ext: no edema Skin: warm/well-perfused Neuro: alert and oriented x3, no focal findings Psych: appropriate affect Objective Data Current Medications Generic Name Dose Route Start Last Admin Trade Name Freq PRN Reason Stop Dose Admin Acetaminophen 650 mg 07/15/20 17:27 Acetaminophen 325 Mg Tablet PO Q6H PRN Pain, Mild (Pain Scale 1-3) Atorvastatin Calcium 20 mg 07/15/20 21:00 07/15/20 21:09 Atorvastatin Calcium 20 Mg Tablet PO 20 mg BEDTIME SABINE Administration Piperacillin Sod/Tazobactam 50 mls @ 100 mls/hr 07/15/20 18:00 07/16/20 06:25 Sod 3.375 gm/ Sodium Chloride IV Infused Q6H SABINE Infusion Lactated Ringer's 1,000 mls @ 125 mls/hr 07/15/20 17:27 07/16/20 09:11 Lr IVCONT Not Given .Q8H [facility] Insulin Human Lispro 0 unit 07/15/20 17:27 07/16/20 07:45 Insulin Lispro 100 Unit/Ml 3 Ml Vial SUBCUT Not Given QIDACHS [facility] Protocol Lisinopril 10 mg 07/16/20 09:00 07/16/20 07:44 Lisinopril 10 Mg Tablet PO Not Given DAILY [facility] Protocol Magnesium Hydroxide 30 ml 07/15/20 17:27 Milk Of Magnesia 30 Ml Oral.Susp PO DAILY PRN Constipation Morphine Sulfate 4 mg 07/15/20 17:27 Morphine Sulfate 4 Mg/Ml Cartridge IVPUSH Q3H PRN Pain, Severe (Pain Scale 7-10) Oxycodone HCl 5 mg 07/15/20 17:27 07/16/20 07:44 Oxycodone Hcl Immed Release 5 Mg Tablet PO 5 mg Q6H PRN Administration Pain, Moderate (Pain Scale 4-6 Pharmacy Consult 1 each 07/15/20 07:49 Consult Rx Perform Med Rec MISCELLANE ONCE PRN Consult order Sodium Chloride 3 ml 07/15/20 17:27 07/16/20 07:44 0.9 % Sodium Chloride Flush 3 Ml Syringe IVFLUSH Not Given QSHIFT [facility] Zolpidem Tartrate 5 mg 07/15/20 17:27 Zolpidem Tartrate 5 Mg Tablet PO BEDTIME PRN Insomnia Labs CBC & Chem 7: 07/16/20 06:11 07/16/20 06:11 Labs: Laboratory Results - last 24 hr 07/15/20 07/15/20 07/16/20 18:13 20:52 06:00 WBC RBC Hgb Hct MCV MCH MCHC RDW Plt Count MPV Absolute Nucleated RBC Nucleated RBC % (auto) Sodium Potassium Chloride Carbon Dioxide Anion Gap BUN Creatinine Estim Creat Clear Calc Estimated GFR POC Glucose 138 H 186 H Random Glucose Estimat Average Glucose 174 Hemoglobin A1c % 7.7 Calcium 07/16/20 07/16/20 07/16/20 06:11 06:11 07:46 WBC 21.8 H RBC 5.34 Hgb 16.2 Hct 48.9 MCV 91.6 MCH 30.3 MCHC 33.1 RDW 13.2 Plt Count 239 MPV 10.1 Absolute Nucleated RBC 0.000 Nucleated RBC % (auto) 0.0 Sodium 137 Potassium 4.2 Chloride 103 Carbon Dioxide 22 Anion Gap 16 BUN 19 H Creatinine 1.08 Estim Creat Clear Calc 75.4 Estimated GFR > 60 POC Glucose 128 H Random Glucose 125 H D Estimat Average Glucose Hemoglobin A1c % Calcium 8.3 L D 07/16/20 10:54 WBC RBC Hgb Hct MCV MCH MCHC RDW Plt Count MPV Absolute Nucleated RBC Nucleated RBC % (auto) Sodium Potassium Chloride Carbon Dioxide Anion Gap BUN Creatinine Estim Creat Clear Calc Estimated GFR POC Glucose 107 Random Glucose Estimat Average Glucose Hemoglobin A1c % Calcium Microbiology Microbiology Results: Microbiology 07/15/20 07:21 Blood - Venous Blood Culture - Preliminary No growth after 24 hours. 07/15/20 07:08 Blood - Venous Blood Culture - Preliminary No growth after 24 hours. Assessment and Plan (1) Diabetes: Status: Acute Assessment and Plan: hospital d#2 69yo M with DM2, HTN, HLD admitted to general surgery service for acute cholecystitis medicine consultation for management of comorbid conditions # HTN - continue lisinopril # HLD - continue statin # DM2, A1c 7.7 - hold OHGs, give correction-dose lispro # acute cholecystitis - pip/dario d#2, planned lap magalys today # VTE ppx - SCDs, add LMWH when OK with surgery
--- NOTE | 2020-07-16 11:18 | P.CONAN_ITS ---
[facility] Past Medical History Medical History Bilateral knee pain Diabetes HTN (hypertension) Hyperlipidemia Surgical History Surgical History History of appendectomy History of bilateral knee arthroplasty Social History Social History Household Members: Spouse Housing: House Do you presently have visiting nurse or other home services: No Alcohol intake: current Alcohol intake frequency: 3 or more drinks per day Alcohol type: beer Smoking Status: Former smoker Smoked in Last 30 Days: No Smoking Quit Date: 25 years ago Use of substances other than those prescribed or required for medical reasons: No Currently Displaying Signs/Symptoms of Drug Intoxication Withdrawal: No Have you been hit, kicked, punched, or otherwise hurt by someone within the past year? If so, by whom?: No Do you feel safe in your current relationship?: Yes Is there a partner from a previous relationship who is making you feel unsafe now?: No Are you made to feel afraid or neglected: No Spiritual Healthcare Practices: worship Advance Directives: No Advance Directives Information Provided: No Do you have thoughts of harming others: None Do you have a plan to hurt others: No Plan Recently lost weight without trying: No Meds Allergies Allergy/AdvReac Type Severity Reaction Status Date / Time No Known Allergies Allergy Mild NKA Verified 07/15/20 21:11 Home Medications Medication Instructions Recorded Confirmed Type empagliflozin [Jardiance] 10 mg PO DAILY 07/15/20 07/15/20 History glipizide 1 tab PO BID 07/15/20 07/15/20 History lisinopril 10 mg PO DAILY 07/15/20 07/15/20 History metformin 1,000 mg PO BID 07/15/20 07/15/20 History simvastatin 40 mg PO BEDTIME 07/15/20 07/15/20 History Exam Exam Date and Time: July 16, 2020 1118 Height,Weight and Vital Signs: Height 5 ft 10 in Weight 103.1 kg Last Vital Signs Temp 98.7 F 07/16/20 10:56 Pulse 100 07/16/20 10:56 Resp 16 07/16/20 10:56 BP 169/83 H 07/16/20 10:56 Pulse Ox 95 07/16/20 10:56 Pertinent Lab Results Pertinent Lab Results: Laboratory Tests 07/15/20 07/15/20 07/15/20 07:08 07:08 07:08 WBC 23.2 H RBC 5.79 Hgb 17.9 Hct 52.4 H MCV 90.5 MCH 30.9 MCHC 34.2 RDW 12.9 Plt Count 277 MPV 9.8 Immature Gran % (Auto) 0.5 H Neut % (Auto) 89.7 H Lymph % (Auto) 3.4 L [place] % (Auto) 6.2 Eos % (Auto) 0.0 Baso % (Auto) 0.2 Lymph # (Auto) 0.8 L [place] # (Auto) 1.4 H Eos # (Auto) 0.0 Baso # (Auto) 0.0 Abs Immat Gran (auto) 0.12 H Absolute Neuts (auto) 20.8 H Absolute Nucleated RBC 0.000 Nucleated RBC % (auto) 0.0 Smear Tech's Comments VERIFIED PT 12.0 INR 1.0 APTT 35.5 Sodium 138 Potassium 4.9 Chloride 97 Carbon Dioxide 27 Anion Gap 19 BUN 21 H Creatinine 1.34 Estim Creat Clear Calc 63.7 Estimated GFR 53 POC Glucose Random Glucose 240 H Estimat Average Glucose Hemoglobin A1c % Lactic Acid Lactic Acid Fup @ 2Hr Calcium 9.7 Magnesium Total Bilirubin Direct Bilirubin AST ALT Alkaline Phosphatase Troponin I High Sens Total Protein Albumin Lipase Urine Color Urine Appearance Urine pH Ur Specific [place] Urine Protein Urine Glucose (UA) Urine Ketones Urine Blood Urine Nitrite Ur Leukocyte Esterase Urine RBC Urine WBC Ur Squamous Epith Cells Urine Bacteria COVID-19 (BABATUNDE) COVID-19 Clin Com 07/15/20 07/15/20 07/15/20 07:08 07:08 07:08 WBC RBC Hgb Hct MCV MCH MCHC RDW Plt Count MPV Immature Gran % (Auto) Neut % (Auto) Lymph % (Auto) [place] % (Auto) Eos % (Auto) Baso % (Auto) Lymph # (Auto) [place] # (Auto) Eos # (Auto) Baso # (Auto) Abs Immat Gran (auto) Absolute Neuts (auto) Absolute Nucleated RBC Nucleated RBC % (auto) Smear Tech's Comments PT INR APTT Sodium Potassium Chloride Carbon Dioxide Anion Gap BUN Creatinine Estim Creat Clear Calc Estimated GFR POC Glucose Random Glucose Estimat Average Glucose Hemoglobin A1c % Lactic Acid 2.6 H* Lactic Acid Fup @ 2Hr Calcium Magnesium 2.1 Total Bilirubin 1.4 H Direct Bilirubin 0.4 AST 24 ALT 36 Alkaline Phosphatase 79 Troponin I High Sens < 3.5 Total Protein 7.6 Albumin 4.5 Lipase 41 Urine Color Urine Appearance Urine pH Ur Specific [place] Urine Protein Urine Glucose (UA) Urine Ketones Urine Blood Urine Nitrite Ur Leukocyte Esterase Urine RBC Urine WBC Ur Squamous Epith Cells Urine Bacteria COVID-19 (BABATUNDE) COVID-19 Clin Com 07/15/20 07/15/20 07/15/20 08:46 09:26 09:33 WBC RBC Hgb Hct MCV MCH MCHC RDW Plt Count MPV Immature Gran % (Auto) Neut % (Auto) Lymph % (Auto) [place] % (Auto) Eos % (Auto) Baso % (Auto) Lymph # (Auto) [place] # (Auto) Eos # (Auto) Baso # (Auto) Abs Immat Gran (auto) Absolute Neuts (auto) Absolute Nucleated RBC Nucleated RBC % (auto) Smear Tech's Comments PT INR APTT Sodium Potassium Chloride Carbon Dioxide Anion Gap BUN Creatinine Estim Creat Clear Calc Estimated GFR POC Glucose Random Glucose Estimat Average Glucose Hemoglobin A1c % Lactic Acid Lactic Acid Fup @ 2Hr 2.0 Calcium Magnesium Total Bilirubin Direct Bilirubin AST ALT Alkaline Phosphatase Troponin I High Sens Total Protein Albumin Lipase Urine Color YELLOW Urine Appearance CLEAR Urine pH 7.0 Ur Specific [place] <= 1.005 Urine Protein NEG Urine Glucose (UA) >=1000 H Urine Ketones NEG Urine Blood NEG Urine Nitrite NEG Ur Leukocyte Esterase NEG Urine RBC 0 Urine WBC 0 Ur Squamous Epith Cells TRACE Urine Bacteria NONE COVID-19 (BABATUNDE) Negative COVID-19 [place] Com See Note 07/15/20 07/15/20 07/16/20 18:13 20:52 06:00 WBC RBC Hgb Hct MCV MCH MCHC RDW Plt Count MPV Immature Gran % (Auto) Neut % (Auto) Lymph % (Auto) [place] % (Auto) Eos % (Auto) Baso % (Auto) Lymph # (Auto) [place] # (Auto) Eos # (Auto) Baso # (Auto) Abs Immat Gran (auto) Absolute Neuts (auto) Absolute Nucleated RBC Nucleated RBC % (auto) Smear Tech's Comments PT INR APTT Sodium Potassium Chloride Carbon Dioxide Anion Gap BUN Creatinine Estim Creat Clear Calc Estimated GFR POC Glucose 138 H 186 H Random Glucose Estimat Average Glucose 174 Hemoglobin A1c % 7.7 Lactic Acid Lactic Acid Fup @ 2Hr Calcium Magnesium Total Bilirubin Direct Bilirubin AST ALT Alkaline Phosphatase Troponin I High Sens Total Protein Albumin Lipase Urine Color Urine Appearance Urine pH Ur Specific [place] Urine Protein Urine Glucose (UA) Urine Ketones Urine Blood Urine Nitrite Ur Leukocyte Esterase Urine RBC Urine WBC Ur Squamous Epith Cells Urine Bacteria COVID-19 (BABATUNDE) COVID-19 Clin Com 07/16/20 07/16/20 07/16/20 06:11 06:11 07:46 WBC 21.8 H RBC 5.34 Hgb 16.2 Hct 48.9 MCV 91.6 MCH 30.3 MCHC 33.1 RDW 13.2 Plt Count 239 MPV 10.1 Immature Gran % (Auto) Neut % (Auto) Lymph % (Auto) [place] % (Auto) Eos % (Auto) Baso % (Auto) Lymph # (Auto) [place] # (Auto) Eos # (Auto) Baso # (Auto) Abs Immat Gran (auto) Absolute Neuts (auto) Absolute Nucleated RBC 0.000 Nucleated RBC % (auto) 0.0 Smear Tech's Comments PT INR APTT Sodium 137 Potassium 4.2 Chloride 103 Carbon Dioxide 22 Anion Gap 16 BUN 19 H Creatinine 1.08 Estim Creat Clear Calc 75.4 Estimated GFR > 60 POC Glucose 128 H Random Glucose 125 H D Estimat Average Glucose Hemoglobin A1c % Lactic Acid Lactic Acid Fup @ 2Hr Calcium 8.3 L D Magnesium Total Bilirubin Direct Bilirubin AST ALT Alkaline Phosphatase Troponin I High Sens Total Protein Albumin Lipase Urine Color Urine Appearance Urine pH Ur Specific [place] Urine Protein Urine Glucose (UA) Urine Ketones Urine Blood Urine Nitrite Ur Leukocyte Esterase Urine RBC Urine WBC Ur Squamous Epith Cells Urine Bacteria COVID-19 (BABATUNDE) COVID-19 Clin Com 07/16/20 10:54 WBC RBC Hgb Hct MCV MCH MCHC RDW Plt Count MPV Immature Gran % (Auto) Neut % (Auto) Lymph % (Auto) [place] % (Auto) Eos % (Auto) Baso % (Auto) Lymph # (Auto) [place] # (Auto) Eos # (Auto) Baso # (Auto) Abs Immat Gran (auto) Absolute Neuts (auto) Absolute Nucleated RBC Nucleated RBC % (auto) Smear Tech's Comments PT INR APTT Sodium Potassium Chloride Carbon Dioxide Anion Gap BUN Creatinine Estim Creat Clear Calc Estimated GFR POC Glucose 107 Random Glucose Estimat Average Glucose Hemoglobin A1c % Lactic Acid Lactic Acid Fup @ 2Hr Calcium Magnesium Total Bilirubin Direct Bilirubin AST ALT Alkaline Phosphatase Troponin I High Sens Total Protein Albumin Lipase Urine Color Urine Appearance Urine pH Ur Specific [place] Urine Protein Urine Glucose (UA) Urine Ketones Urine Blood Urine Nitrite Ur Leukocyte Esterase Urine RBC Urine WBC Ur Squamous Epith Cells Urine Bacteria COVID-19 (BABATUNDE) COVID-19 Clin Com
--- NOTE | 2020-07-16 11:41 | HO.ANESPROP2 ---
[facility] Past Medical History Medical History Bilateral knee pain Diabetes HTN (hypertension) Hyperlipidemia Surgical History Surgical History History of appendectomy History of bilateral knee arthroplasty Social History Social History Household Members: Spouse Housing: House Do you presently have visiting nurse or other home services: No Alcohol intake: current Alcohol intake frequency: 3 or more drinks per day Alcohol type: beer Smoking Status: Former smoker Smoked in Last 30 Days: No Smoking Quit Date: 25 years ago Use of substances other than those prescribed or required for medical reasons: No Currently Displaying Signs/Symptoms of Drug Intoxication Withdrawal: No Have you been hit, kicked, punched, or otherwise hurt by someone within the past year? If so, by whom?: No Do you feel safe in your current relationship?: Yes Is there a partner from a previous relationship who is making you feel unsafe now?: No Are you made to feel afraid or neglected: No Spiritual Healthcare Practices: congregational Advance Directives: No Advance Directives Information Provided: No Do you have thoughts of harming others: None Do you have a plan to hurt others: No Plan Recently lost weight without trying: No Meds Allergies Allergy/AdvReac Type Severity Reaction Status Date / Time No Known Allergies Allergy Mild NKA Verified 07/15/20 21:11 Home Medications Medication Instructions Recorded Confirmed Type empagliflozin [Jardiance] 10 mg PO DAILY 07/15/20 07/15/20 History glipizide 1 tab PO BID 07/15/20 07/15/20 History lisinopril 10 mg PO DAILY 07/15/20 07/15/20 History metformin 1,000 mg PO BID 07/15/20 07/15/20 History simvastatin 40 mg PO BEDTIME 07/15/20 07/15/20 History Exam Exam Date and Time: July 16, 2020 1141 Height,Weight and Vital Signs: Height 5 ft 10 in Weight 103.1 kg Last Vital Signs Temp 98.7 F 07/16/20 10:56 Pulse 100 07/16/20 10:56 Resp 16 07/16/20 10:56 BP 169/83 H 07/16/20 10:56 Pulse Ox 95 07/16/20 10:56 Pertinent Lab Results Pertinent Lab Results: Laboratory Tests 07/15/20 07/15/20 07/15/20 07:08 07:08 07:08 WBC 23.2 H RBC 5.79 Hgb 17.9 Hct 52.4 H MCV 90.5 MCH 30.9 MCHC 34.2 RDW 12.9 Plt Count 277 MPV 9.8 Immature Gran % (Auto) 0.5 H Neut % (Auto) 89.7 H Lymph % (Auto) 3.4 L [place] % (Auto) 6.2 Eos % (Auto) 0.0 Baso % (Auto) 0.2 Lymph # (Auto) 0.8 L [place] # (Auto) 1.4 H Eos # (Auto) 0.0 Baso # (Auto) 0.0 Abs Immat Gran (auto) 0.12 H Absolute Neuts (auto) 20.8 H Absolute Nucleated RBC 0.000 Nucleated RBC % (auto) 0.0 Smear Tech's Comments VERIFIED PT 12.0 INR 1.0 APTT 35.5 Sodium 138 Potassium 4.9 Chloride 97 Carbon Dioxide 27 Anion Gap 19 BUN 21 H Creatinine 1.34 Estim Creat Clear Calc 63.7 Estimated GFR 53 POC Glucose Random Glucose 240 H Estimat Average Glucose Hemoglobin A1c % Lactic Acid Lactic Acid Fup @ 2Hr Calcium 9.7 Magnesium Total Bilirubin Direct Bilirubin AST ALT Alkaline Phosphatase Troponin I High Sens Total Protein Albumin Lipase Urine Color Urine Appearance Urine pH Ur Specific [place] Urine Protein Urine Glucose (UA) Urine Ketones Urine Blood Urine Nitrite Ur Leukocyte Esterase Urine RBC Urine WBC Ur Squamous Epith Cells Urine Bacteria COVID-19 (BABATUNDE) COVID-19 Clin Com 07/15/20 07/15/20 07/15/20 07:08 07:08 07:08 WBC RBC Hgb Hct MCV MCH MCHC RDW Plt Count MPV Immature Gran % (Auto) Neut % (Auto) Lymph % (Auto) [place] % (Auto) Eos % (Auto) Baso % (Auto) Lymph # (Auto) [place] # (Auto) Eos # (Auto) Baso # (Auto) Abs Immat Gran (auto) Absolute Neuts (auto) Absolute Nucleated RBC Nucleated RBC % (auto) Smear Tech's Comments PT INR APTT Sodium Potassium Chloride Carbon Dioxide Anion Gap BUN Creatinine Estim Creat Clear Calc Estimated GFR POC Glucose Random Glucose Estimat Average Glucose Hemoglobin A1c % Lactic Acid 2.6 H* Lactic Acid Fup @ 2Hr Calcium Magnesium 2.1 Total Bilirubin 1.4 H Direct Bilirubin 0.4 AST 24 ALT 36 Alkaline Phosphatase 79 Troponin I High Sens < 3.5 Total Protein 7.6 Albumin 4.5 Lipase 41 Urine Color Urine Appearance Urine pH Ur Specific [place] Urine Protein Urine Glucose (UA) Urine Ketones Urine Blood Urine Nitrite Ur Leukocyte Esterase Urine RBC Urine WBC Ur Squamous Epith Cells Urine Bacteria COVID-19 (BABATUNDE) COVID-19 Clin Com 07/15/20 07/15/20 07/15/20 08:46 09:26 09:33 WBC RBC Hgb Hct MCV MCH MCHC RDW Plt Count MPV Immature Gran % (Auto) Neut % (Auto) Lymph % (Auto) [place] % (Auto) Eos % (Auto) Baso % (Auto) Lymph # (Auto) [place] # (Auto) Eos # (Auto) Baso # (Auto) Abs Immat Gran (auto) Absolute Neuts (auto) Absolute Nucleated RBC Nucleated RBC % (auto) Smear Tech's Comments PT INR APTT Sodium Potassium Chloride Carbon Dioxide Anion Gap BUN Creatinine Estim Creat Clear Calc Estimated GFR POC Glucose Random Glucose Estimat Average Glucose Hemoglobin A1c % Lactic Acid Lactic Acid Fup @ 2Hr 2.0 Calcium Magnesium Total Bilirubin Direct Bilirubin AST ALT Alkaline Phosphatase Troponin I High Sens Total Protein Albumin Lipase Urine Color YELLOW Urine Appearance CLEAR Urine pH 7.0 Ur Specific [place] <= 1.005 Urine Protein NEG Urine Glucose (UA) >=1000 H Urine Ketones NEG Urine Blood NEG Urine Nitrite NEG Ur Leukocyte Esterase NEG Urine RBC 0 Urine WBC 0 Ur Squamous Epith Cells TRACE Urine Bacteria NONE COVID-19 (BABATUNDE) Negative COVID-19 [employer] Com See Note 07/15/20 07/15/20 07/16/20 18:13 20:52 06:00 WBC RBC Hgb Hct MCV MCH MCHC RDW Plt Count MPV Immature Gran % (Auto) Neut % (Auto) Lymph % (Auto) [place] % (Auto) Eos % (Auto) Baso % (Auto) Lymph # (Auto) [place] # (Auto) Eos # (Auto) Baso # (Auto) Abs Immat Gran (auto) Absolute Neuts (auto) Absolute Nucleated RBC Nucleated RBC % (auto) Smear Tech's Comments PT INR APTT Sodium Potassium Chloride Carbon Dioxide Anion Gap BUN Creatinine Estim Creat Clear Calc Estimated GFR POC Glucose 138 H 186 H Random Glucose Estimat Average Glucose 174 Hemoglobin A1c % 7.7 Lactic Acid Lactic Acid Fup @ 2Hr Calcium Magnesium Total Bilirubin Direct Bilirubin AST ALT Alkaline Phosphatase Troponin I High Sens Total Protein Albumin Lipase Urine Color Urine Appearance Urine pH Ur Specific [place] Urine Protein Urine Glucose (UA) Urine Ketones Urine Blood Urine Nitrite Ur Leukocyte Esterase Urine RBC Urine WBC Ur Squamous Epith Cells Urine Bacteria COVID-19 (BABATUNDE) COVID-19 Clin Com 07/16/20 07/16/20 07/16/20 06:11 06:11 07:46 WBC 21.8 H RBC 5.34 Hgb 16.2 Hct 48.9 MCV 91.6 MCH 30.3 MCHC 33.1 RDW 13.2 Plt Count 239 MPV 10.1 Immature Gran % (Auto) Neut % (Auto) Lymph % (Auto) [place] % (Auto) Eos % (Auto) Baso % (Auto) Lymph # (Auto) [place] # (Auto) Eos # (Auto) Baso # (Auto) Abs Immat Gran (auto) Absolute Neuts (auto) Absolute Nucleated RBC 0.000 Nucleated RBC % (auto) 0.0 Smear Tech's Comments PT INR APTT Sodium 137 Potassium 4.2 Chloride 103 Carbon Dioxide 22 Anion Gap 16 BUN 19 H Creatinine 1.08 Estim Creat Clear Calc 75.4 Estimated GFR > 60 POC Glucose 128 H Random Glucose 125 H D Estimat Average Glucose Hemoglobin A1c % Lactic Acid Lactic Acid Fup @ 2Hr Calcium 8.3 L D Magnesium Total Bilirubin Direct Bilirubin AST ALT Alkaline Phosphatase Troponin I High Sens Total Protein Albumin Lipase Urine Color Urine Appearance Urine pH Ur Specific [place] Urine Protein Urine Glucose (UA) Urine Ketones Urine Blood Urine Nitrite Ur Leukocyte Esterase Urine RBC Urine WBC Ur Squamous Epith Cells Urine Bacteria COVID-19 (BABATUNDE) COVID-19 Clin Com 07/16/20 10:54 WBC RBC Hgb Hct MCV MCH MCHC RDW Plt Count MPV Immature Gran % (Auto) Neut % (Auto) Lymph % (Auto) [place] % (Auto) Eos % (Auto) Baso % (Auto) Lymph # (Auto) [place] # (Auto) Eos # (Auto) Baso # (Auto) Abs Immat Gran (auto) Absolute Neuts (auto) Absolute Nucleated RBC Nucleated RBC % (auto) Smear Tech's Comments PT INR APTT Sodium Potassium Chloride Carbon Dioxide Anion Gap BUN Creatinine Estim Creat Clear Calc Estimated GFR POC Glucose 107 Random Glucose Estimat Average Glucose Hemoglobin A1c % Lactic Acid Lactic Acid Fup @ 2Hr Calcium Magnesium Total Bilirubin Direct Bilirubin AST ALT Alkaline Phosphatase Troponin I High Sens Total Protein Albumin Lipase Urine Color Urine Appearance Urine pH Ur Specific [place] Urine Protein Urine Glucose (UA) Urine Ketones Urine Blood Urine Nitrite Ur Leukocyte Esterase Urine RBC Urine WBC Ur Squamous Epith Cells Urine Bacteria COVID-19 (BABAUTNDE) COVID-19 Clin Com Airway Mallampati Class: II TM Dist: >3cm Neck ROM: Full Loose/Missing/Broken Teeth: No Heart: [id number] Lungs: cta b/l Assessment and Plan Assessment Anesthesia Assessment: Anesthesia Plan Discussed and Chart Reviewed Final Anesthetic Review NPO: Yes ASA Class: III Final Preanesthetic Review: No Changes in Pt Med Stat, Meds/Allgs Chart Reviewed, Consent Obtained/Reviewed and Anes Risks/Benef Reviewed Patient Risk: Intermediate Procedure Risk: Low Assessment/Block/Sedation in SS: Assess/Block/Sedation-SS Anesthetic Plan Anesthetic Plan: GA Disposition: Standard PACU
--- NOTE | 2020-07-16 11:50 | MHC.SHP ---
Pre-Procedural Eval Section A The patient is an INPATIENT: Yes The History & Physical has been completed within 30 days and I have reviewed it.: Yes Section B Chief Complaint: UPPER ABD PAIN Allergies: Allergies Allergy/AdvReac Type Severity Reaction Status Date / Time No Known Allergies Allergy Mild NKA Verified 07/15/20 21:11 Plan Diagnosis/Plan: Unchanged Patient has been examined and remains a candidate for the planned procedure
--- NOTE | 2020-07-16 14:06 | PM.OP ---
Brief Operative Note Date of Service: 07/16/20 Pre-op diagnosis: Acute cholecystitis due to cholelithiasis Post-op diagnosis: same Procedure: Laparoscopic converted to open cholecystectomy Implants: none Surgeon: Edilson Sanchez MD Anesthesia: GETA [employer] Reconnaissance Vehicle Crewman: Nusrat Wolf Estimated blood loss (mL): 50 Pathology: other (gallbladder) Condition: stable Disposition: PACU
--- NOTE | 2020-07-16 14:15 | P.OP_ITS ---
Operative Note Operative Note Date of Service: 07/16/20 Narrative: Preoperative Diagnosis: Acute cholecystitis due to cholelithiasis Postoperative diagnosis: Acute gangrenous cholecystitis due to cholelithiasis Procedure: Laparoscopic converted to open cholecystectomy Surgeon: Edilson Randolph MD Supervisor [employer]: Nusrta Wolf MD Anesthesia: General endotracheal Indications for procedure: 69-year-old male patient presenting to the emergency department with complaints of epigastric abdominal pain associated with nausea and vomiting. Patient was noted to be tender over in the right upper quadrant with a positive Gudino sign. Patient was found to have an elevated WBC. CT of the abdomen and pelvis as well as ultrasound of the abdomen revealed a thickened gallbladder with multiple small gallstones. Findings were suggestive of acute cholecystitis. Patient presents now for cholecystectomy. Operative findings: Upon insertion of the laparoscope, the omentum was noted to be densely adherent to the liver and gallbladder. Attempts to free the omentum from the liver were unsuccessful due to the tight adhesions. Decision was therefore made to convert to an open procedure. Patient was found to have a gangrenous gallbladder once the omentum was freed. Findings were consistent with acute gangrenous cholecystitis. Specimen: Gallbladder Estimated blood loss: 50 Complications: None Drains: # 7Jackson-Edge drain Procedure details: Patient was brought to the OR and placed in a supine position. After administering general anesthesia the patient's abdomen was prepped with ChloraPrep and draped in a sterile fashion. A surgical time-out was called the consent confirmed. Patient received preoperative antibiotics and Venodyne boots were in place. Local anesthesia consisting of 0.75% Sensorcaine was infiltrated in a periumbilical region. A 5 mm incision was then made with a scalpel carried out through subcutaneous tissue. A Veress needle was then inserted while elevating abdominal cavity with towel clips. After a positive drop test the abdomen was insufflated to a pressure of 15 mm of mercury. The Veress needle was removed and a 5 mm trocar inserted. The camera was then inserted in the abdomen explored. A 12 mm trocar was then placed in the epigastrium. A Dolphin dissected was then placed through the epigastric trocar. The omentum was noted to be densely adherent to the liver. Gallbladder could not be identified due to the dense adhesions. No further trocars were placed at this time decision was made to convert to an open procedure. Maria Alejandra incision was made in the right right upper quadrant measuring approximately 8 cm in length. This was carried out through subcutaneous tissue past Javier's fashion up to the external oblique aponeurosis. This was incised with electrocautery. Rectus muscle was then divided with electrocautery. Posterior sheath was then entered and the peritoneum entered as well. A large the serous fluid collection was encountered and drained. Using blunt dissection the of omentum was taken down off the liver and gallbladder. The Criselda clamp was then applied to the gallbladder with the this was found to be too tensely filled with bile. A laparoscopic needle was then used to drain the gallbladder of thick mucopurulent bilious fluid. The gallbladder was then grasped with a Criselda clamp and retracted downward. Electrocautery was then used to divide the peritoneum at the margin of the liver. Combination of electrocautery dissection and blunt dissection was then used to dissect the gallbladder off the liver bed. This was continued from distal to proximal. The cystic artery was identified doubly clipped with hemoclips. Dissection was continued down to the infundibulum and cystic duct. The cystic duct was then clamped with a right angle clamp and the gallbladder excised. This was sent to pathology for further examination. Cystic duct was then ligated using a 0 Polysorb suture. Hemoclip was also applied to the cystic duct. The abdominal wounds were then irrigated thoroughly with saline solution and suctioned dry. Liver bed was checked for hemostasis. A 7. Lg-Edge drain was placed the liver bed. This was brought through a separate stab wound and connected to a small-bowel. Drain was secured to the skin using a 3-0 nylon suture. Posterior sheath and peritoneum were then closed using a running 0 Polysorb suture. Anterior rectus sheath was then closed using a running 0 Polysorb suture. Javier's fascia and dermis reapproximated using interrupted 3-0 Polysorb sutures. Skin was closed in all incisions using a running subcuticular 4 0 Polysorb suture. Steri-Strips 4 x 4 gauze and Tegaderm were then applied. The patient tolerated the procedure well. Sponge, instrument, needle counts reported as correct. The patient was transferred to PACU in stable condition.
[2020-07-16 16:50] LABS: Glucose, Whole Blood 142 mg/dL (60-115)
[2020-07-16 20:31] LABS: Glucose, Whole Blood 204 mg/dL (60-115)
[2020-07-16] MEDS: Atorvastatin Calcium 20 MG TABLET PO (20:36)
[2020-07-16] MEDS: Insulin Lispro 100 UNIT/ML 3 ML VIAL SUBCUT (20:37)
[2020-07-17] MEDS: Piperacillin Sodium/Tazobactam 3.375 GM in 0.9 % Sodium Chloride 50 ML IV ×4 (00:02→17:53)
[2020-07-17 03:51] VITALS: BP 140/73; PULSE 78; RESP 20; TEMP 36.7; O2SAT 97
[2020-07-17] MEDS: Lactated Ringers 1,000 ML 125 ML IVCONT (06:14)
[2020-07-17 07:12] LABS: MANUAL DIFF FLAG NO
[2020-07-17 07:26] LABS: Basophils Percent Auto 0.1 % (0-2); Hematocrit 45.9 % (42-52); Hemoglobin 14.9 g/dl (14.0-18.0); Imm Gran Abs Auto 0.18 X10*3/uL (0.00-0.03); Imm Gran Pct Auto 0.8 % (0.0-0.4); Lymphocytes Absolute Auto 0.7 X10*3/uL (1.2-4.9); Lymphocytes Percent Auto 3.3 % (20-40); Mean Corpuscular HGB Conc 32.5 g/dl (31.0-36.0); Mean Corpuscular Hemoglobin 30.5 pg (27.0-33.0); Mean Corpuscular Volume 94.1 fL (80-98); Mean Platelet Volume 10.1 fL (9.4-12.4); Monocytes Absolute Auto 1.4 X10*3/uL (0.1-1.2); Monocytes Percent Auto 6.4 % (2-11); Neutrophils Absolute Auto 19.8 X10*3/uL (2.0-8.3); Neutrophils Percent Auto 89.4 % (45-73); Platelet Count 246 X10*3/uL (160-400); Red Blood Count 4.88 X10*6/uL (4.60-5.80); Red Cell Distribution Width 13.1 % (11.0-16.0); White Blood Count 22.1 X10*3/uL (4.8-10.8)
[2020-07-17 07:44] VITALS: BP 156/66; PULSE 77; RESP 17; TEMP 36.2; O2SAT 96
--- NOTE | 2020-07-17 07:45 | P.PNGS_ITS ---
Subjective Subjective Date of Service: 07/17/20 <Cristina Snyder PA-C - Last Filed: 07/17/20 07:50> 07/17/20 <Edilson Sanchez MD - Last Filed: 07/17/20 07:57> Interval history: Feels sore this morning at RUQ incision site. Having difficulty with deep breaths. Comfortable with medication. OTherwise feels ok. Tolerating solid diet without N/V. <Cristina Snyder PA-C - Last Filed: 07/17/20 07:50> Physical Exam Vital Signs: Vital Signs: Last Vital Signs Temp 97.2 F 07/17/20 07:44 Pulse 77 07/17/20 07:44 Resp 17 07/17/20 07:44 BP 156/66 H 07/17/20 07:44 Pulse Ox 96 07/17/20 07:44 Body Mass Index 32.5 <Cristina Snyder PA-C - Last Filed: 07/17/20 07:50> Const: General: comfortable, no acute distress and alert <Cristina Snyder PA-C - Last Filed: 07/17/20 07:50> Orientation/consciousness: patient oriented x3 <Cristina Snyder PA-C Last Filed: 07/17/20 07:50> Eyes: Sclerae: sclerae normal <Cristina Snyder PA-C Last Filed: 07/17/20 07:50> Resp: Effort & Inspection: normal respiratory effort <Cristina Snyder PA-C - Last Filed: 07/17/20 07:50> Cardio: Rate: regular rate <Cristina Snyedr PA-C - Last Filed: 07/17/20 07:50> GI: Other: BE drain with serosanguineous drainage <JANE Mora Last Filed: 07/17/20 07:50> Inspection: Yes incision (dressings clean) <JANE Mora Last Filed: 07/17/20 07:50> Palpation (GI): Soft to palpation, Tenderness to palpation present (GI) (incisional, moderate), no guarding, not rigid and No Rebound tenderness present <Cristina Snyder PA-C - Last Filed: 07/17/20 07:50> Skin: General skin exam: no rashes or lesions noted <JANE Mora Last Filed: 07/17/20 07:50> Neuro: General: patient oriented x3 <JANE Mora Last Filed: 07/17/20 07:50> Extrem: General: Yes no clubbing, cyanosis or edema <Cristina Snyder PA-C - Last Filed: 07/17/20 07:50> Progress Note: A&P Assessment and plan (1) Diabetes: Status: Acute <JANE Mora Last Filed: 07/17/20 07:50> (2) Acute cholecystitis: Status: Acute <JANE Mora Last Filed: 07/17/20 07:50> (3) S/P cholecystectomy: Status: Acute <JANE Mora Last Filed: 07/17/20 07:50> Assessment and Plan: POD #1 s/p lap attempted converted to open CCY. Doing well post op, comfortable. VSS. Abd exam benign with appropriate post op tenderness, BE drain with serosanguineous drainage. AM labs pending. Cont pain control. Diet as tolerated. Dc IVF. Encouraged OOB/ambulation. Cont IV zosyn. Likely home in next 1-2 days when comfortable with PO analgesics. WIll likely remove BE drain prior. <Cristina Snyder PA-C - Last Filed: 07/17/20 07:50> POD #1 s/p lap to openn cholecystectomy, appropriate incisional pain. Wounds are clean and intact. Agree with the above assessment and plan. Encouraged OOB and ambulation; incentive spirometry. <Edilson Sanchez MD - Last Filed: 07/17/20 07:57> Fall Risk Details Current Medications: Current Medications Generic Name Dose Route Start Last Admin Trade Name Freq PRN Reason Stop Dose Admin Acetaminophen 650 mg 07/15/20 17:27 Acetaminophen 325 Mg Tablet PO Q6H PRN Pain, Mild (Pain Scale 1-3) Atorvastatin Calcium 20 mg 07/15/20 21:00 07/16/20 20:36 Atorvastatin Calcium 20 Mg Tablet PO 20 mg BEDTIME SABINE Administration Piperacillin Sod/Tazobactam 50 mls @ 100 mls/hr 07/15/20 18:00 07/17/20 06:42 Sod 3.375 gm/ Sodium Chloride IV Infused Q6H SABINE Infusion Lactated Ringer's 1,000 mls @ 125 mls/hr 07/15/20 17:27 07/17/20 06:14 Lr IVCONT 125 mls/hr .Q8H SABINE Administration Insulin Human Lispro 0 unit 07/15/20 17:27 07/16/20 20:37 Insulin Lispro 100 Unit/Ml 3 Ml Vial SUBCUT 4 unit QIDACHS COUNTS INCLUDE 234 BEDS AT THE [facility] Administration Protocol Lisinopril 10 mg 07/16/20 09:00 07/16/20 07:44 Lisinopril 10 Mg Tablet PO Not Given DAILY COUNTS INCLUDE 234 BEDS AT THE [facility] Protocol Magnesium Hydroxide 30 ml 07/15/20 17:27 Milk Of Magnesia 30 Ml Oral.Susp PO DAILY PRN Constipation Morphine Sulfate 4 mg 07/15/20 17:27 Morphine Sulfate 4 Mg/Ml Cartridge IVPUSH Q3H PRN Pain, Severe (Pain Scale 7-10) Oxycodone HCl 5 mg 07/15/20 17:27 07/16/20 07:44 Oxycodone Hcl Immed Release 5 Mg Tablet PO 5 mg Q6H PRN Administration Pain, Moderate (Pain Scale 4-6 Pharmacy Consult 1 each 07/15/20 07:49 Consult Rx Perform Med Rec MISCELLANE ONCE PRN Consult order Sodium Chloride 3 ml 07/15/20 17:27 07/16/20 20:40 0.9 % Sodium Chloride Flush 3 Ml Syringe IVFLUSH Not Given QSHIFT COUNTS INCLUDE 234 BEDS AT THE [facility] Zolpidem Tartrate 5 mg 07/15/20 17:27 Zolpidem Tartrate 5 Mg Tablet PO BEDTIME PRN Insomnia <JANE Mora Last Filed: 07/17/20 07:50> Time Spent With Patient Time: Total time spent is greater than 50% in coordination of care (as documented) at patient's floor/unit and/or counseling patient: <JANE Mora Last Filed: 07/17/20 07:50> Time with patient: 15 - 24 minutes <JANE Mora Filed: 07/17/20 07:50>
[2020-07-17] MEDS: lisinopriL 10 MG TABLET PO (07:54)
[2020-07-17] MEDS: oxyCODONE HCl Immed Release 5 MG TABLET PO (07:54)
[2020-07-17 08:04] LABS: Anion Gap 20 (12-20); Blood Urea Nitrogen 27 mg/dL (9-16); Calcium 7.9 mg/dL (8.4-10.2); Carbon Dioxide 21 mmol/L (22-29); Chloride 102 mmol/L (96-108); Creatinine Clr Calc Pharmacy 67.9; Estimated Glomerular Filt Rate 60; Glucose Random 135 mg/dL (60-115); Potassium 4.7 mmol/l (3.3-5.1); Sodium 138 mmol/L (135-145)
[2020-07-17 08:13] LABS: Glucose, Whole Blood 149 mg/dL (60-115)
[2020-07-17 10:58] VITALS: BP 114/48; PULSE 76; RESP 17; TEMP 36.4; O2SAT 96
[2020-07-17 11:20] LABS: Glucose, Whole Blood 221 mg/dL (60-115)
[2020-07-17] MEDS: Insulin Lispro 100 UNIT/ML 3 ML VIAL SUBCUT ×3 (11:42→21:09)
--- NOTE | 2020-07-17 12:21 | P.PNIM_ITS ---
Subjective Subjective Date of Service: 07/17/20 Interval History: lap converted to open cholecystetomy due to dense adhesions pain well-controlled but worse with deep breathing Physical Exam Vital Signs: Vital Signs: Last Vital Signs Temp 97.5 F 07/17/20 10:58 Pulse 76 07/17/20 10:58 Resp 17 07/17/20 10:58 BP 114/48 L 07/17/20 10:58 Pulse Ox 96 07/17/20 10:58 Body Mass Index 32.5 Gen: in no acute distress HEENT: sclera anicteric, moist mucus membranes Neck: supple Lungs: clear to auscultation bilaterally Heart: regular rate and rhythm, no murmurs Abd: Maria Alejandra incision, BE drain with serosanguinous drainage Ext: no edema Skin: warm/well-perfused Neuro: alert and oriented x3, no focal findings Psych: appropriate affect Objective Data Current Medications Generic Name Dose Route Start Last Admin Trade Name Freq PRN Reason Stop Dose Admin Acetaminophen 650 mg 07/15/20 17:27 Acetaminophen 325 Mg Tablet PO Q6H PRN Pain, Mild (Pain Scale 1-3) Atorvastatin Calcium 20 mg 07/15/20 21:00 07/16/20 20:36 Atorvastatin Calcium 20 Mg Tablet PO 20 mg BEDTIME SABINE Administration Piperacillin Sod/Tazobactam 50 mls @ 100 mls/hr 07/15/20 18:00 07/17/20 12:15 Sod 3.375 gm/ Sodium Chloride IV Infused Q6H SABINE Infusion Insulin Human Lispro 0 unit 07/15/20 17:27 07/17/20 11:42 Insulin Lispro 100 Unit/Ml 3 Ml Vial SUBCUT 4 unit QIDACHS [facility] Administration Protocol Lisinopril 10 mg 07/16/20 09:00 07/17/20 07:54 Lisinopril 10 Mg Tablet PO 10 mg DAILY [facility] Administration Protocol Magnesium Hydroxide 30 ml 07/15/20 17:27 Milk Of Magnesia 30 Ml Oral.Susp PO DAILY PRN Constipation Morphine Sulfate 4 mg 07/15/20 17:27 Morphine Sulfate 4 Mg/Ml Cartridge IVPUSH Q3H PRN Pain, Severe (Pain Scale 7-10) Oxycodone HCl 5 mg 07/17/20 07:58 Oxycodone Hcl Immed Release 5 Mg Tablet PO Q4H PRN Pain, Moderate (Pain Scale 4-6 Pharmacy Consult 1 each 07/15/20 07:49 Consult Rx Perform Med Rec MISCELLANE ONCE PRN Consult order Sodium Chloride 3 ml 07/15/20 17:27 07/17/20 07:46 0.9 % Sodium Chloride Flush 3 Ml Syringe IVFLUSH Not Given QSHIFT SABINE Zolpidem Tartrate 5 mg 07/15/20 17:27 Zolpidem Tartrate 5 Mg Tablet PO BEDTIME PRN Insomnia Labs CBC & Chem 7: 07/17/20 06:53 07/17/20 06:53 Labs: Laboratory Results - last 24 hr 07/16/20 07/16/20 07/17/20 16:28 20:25 06:53 WBC 22.1 H RBC 4.88 Hgb 14.9 Hct 45.9 MCV 94.1 MCH 30.5 MCHC 32.5 RDW 13.1 Plt Count 246 MPV 10.1 Immature Gran % (Auto) 0.8 H Neut % (Auto) 89.4 H Lymph % (Auto) 3.3 L Mcleod % (Auto) 6.4 Eos % (Auto) 0.0 Baso % (Auto) 0.1 Lymph # (Auto) 0.7 L Mcleod # (Auto) 1.4 H Eos # (Auto) 0.0 Baso # (Auto) 0.0 Abs Immat Gran (auto) 0.18 H Absolute Neuts (auto) 19.8 H Absolute Nucleated RBC 0.000 Nucleated RBC % (auto) 0.0 Sodium Potassium Chloride Carbon Dioxide Anion Gap BUN Creatinine Estim Creat Clear Calc Estimated GFR POC Glucose 142 H 204 H Random Glucose Calcium 07/17/20 07/17/20 07/17/20 06:53 07:47 10:53 WBC RBC Hgb Hct MCV MCH MCHC RDW Plt Count MPV Immature Gran % (Auto) Neut % (Auto) Lymph % (Auto) Mcleod % (Auto) Eos % (Auto) Baso % (Auto) Lymph # (Auto) Mcleod # (Auto) Eos # (Auto) Baso # (Auto) Abs Immat Gran (auto) Absolute Neuts (auto) Absolute Nucleated RBC Nucleated RBC % (auto) Sodium 138 Potassium 4.7 Chloride 102 Carbon Dioxide 21 L Anion Gap 20 BUN 27 H Creatinine 1.20 Estim Creat Clear Calc 67.9 Estimated GFR 60 POC Glucose 149 H 221 H Random Glucose 135 H Calcium 7.9 L Microbiology Microbiology Results: Microbiology 07/15/20 07:21 Blood - Venous Blood Culture - Preliminary No growth after 48 hours. 07/15/20 07:08 Blood - Venous Blood Culture - Preliminary No growth after 48 hours. Assessment and Plan (1) Diabetes: Status: Acute Assessment and Plan: hospital d#3 69yo M with DM2, HTN, HLD admitted to general surgery service for acute cholecystitis POD #1 open cholecystectomy medicine consultation for management of comorbid conditions # HTN - continue lisinopril # HLD - continue statin # DM2, A1c 7.7 - hold OHGs, give correction-dose lispro # acute cholecystitis - pip/dario d#3,e POD #1 open CCY # VTE ppx - SCDs, add LMWH when OK with surgery
--- NOTE | 2020-07-17 12:32 | HO.POSTANES ---
Post Anesthesia Evaluation Post Anesthesia Evaluation Vital Signs: Vital Signs Temp Pulse Resp BP Pulse Ox 07/17/20 10:58 97.5 F 76 17 114/48 L 96 07/17/20 07:44 97.2 F 77 17 156/66 H 96 07/17/20 03:51 98.0 F 78 20 140/73 H 97 Anesthesia: General Endotracheal-GETA Mental Status: Awake Pain Control: Satisfactory Nausea/Vomiting: None Hydration: Adequate Anesthesia-Related Issues: No Anes. Related Issues
[2020-07-17 15:09] VITALS: BP 114/57; PULSE 62; RESP 19; TEMP 36.6; O2SAT 98
[2020-07-17 16:17] LABS: Glucose, Whole Blood 179 mg/dL (60-115)
[2020-07-17] MEDS: 0.9 % Sodium Chloride Flush 3 ML SYRINGE IVFLUSH (16:58)
[2020-07-17 19:03] VITALS: BP 150/74; PULSE 79; RESP 18; TEMP 36.9; O2SAT 94
[2020-07-17] MEDS: Magnesium Hydrox/Alum Hydrox 30 ML ORAL.SUSP PO (19:18)
[2020-07-17] MEDS: ondansetron HCL 4 MG/2 ML VIAL IVPUSH (19:18)
[2020-07-17 21:00] LABS: Glucose, Whole Blood 202 mg/dL (60-115)
[2020-07-17] MEDS: Atorvastatin Calcium 20 MG TABLET PO (21:09)
[2020-07-17 23:43] VITALS: BP 154/73; PULSE 73; RESP 18; TEMP 36.8; O2SAT 94
--- NOTE | 2020-07-17 23:49 | PC.NURSE ---
Late entry: 1843- pt stated that he was having indigestion and nausea. Dr. Sanchez was notified and ordered prn zofran and maalox. At 191 before administration of these medications, pt had an episode of vomiting yellow emesis. Medications zofran and maalox were given right after episode and a little while later pt stated that he was feeling much better. 2354 BE drain emptied with 10mL bloody drainage noted.
[2020-07-18] MEDS: Piperacillin Sodium/Tazobactam 3.375 GM in 0.9 % Sodium Chloride 50 ML IV ×4 (00:09→18:14)
[2020-07-18] MEDS: 0.9 % Sodium Chloride Flush 3 ML SYRINGE IVFLUSH ×3 (00:09→16:27)
[2020-07-18 04:00] VITALS: BP 137/74; PULSE 63; RESP 16; TEMP 37.1; O2SAT 95
[2020-07-18 06:36] LABS: MANUAL DIFF FLAG NO
[2020-07-18 06:48] LABS: Basophils Percent Auto 0.2 % (0-2); Eosinophils Absolute Auto 0.3 X10*3/uL (0.0-0.4); Eosinophils Percent Auto 1.7 % (0-4); Hematocrit 45.6 % (42-52); Hemoglobin 14.8 g/dl (14.0-18.0); Imm Gran Abs Auto 0.11 X10*3/uL (0.00-0.03); Imm Gran Pct Auto 0.7 % (0.0-0.4); Lymphocytes Absolute Auto 1.2 X10*3/uL (1.2-4.9); Lymphocytes Percent Auto 7.6 % (20-40); Mean Corpuscular HGB Conc 32.5 g/dl (31.0-36.0); Mean Corpuscular Hemoglobin 30.1 pg (27.0-33.0); Mean Corpuscular Volume 92.9 fL (80-98); Mean Platelet Volume 9.9 fL (9.4-12.4); Monocytes Absolute Auto 1.4 X10*3/uL (0.1-1.2); Monocytes Percent Auto 8.6 % (2-11); Neutrophils Absolute Auto 13.3 X10*3/uL (2.0-8.3); Neutrophils Percent Auto 81.2 % (45-73); Platelet Count 286 X10*3/uL (160-400); Red Blood Count 4.91 X10*6/uL (4.60-5.80); Red Cell Distribution Width 13.2 % (11.0-16.0); White Blood Count 16.3 X10*3/uL (4.8-10.8)
[2020-07-18 07:37] VITALS: BP 151/71; PULSE 73; RESP 19; TEMP 36.5; O2SAT 94
--- NOTE | 2020-07-18 07:51 | PM.PNGS ---
Subjective Subjective Date of Service: 07/18/20 <Cristina Snyder PA-C - Last Filed: 07/18/20 07:56> 07/18/20 <Edilson Sanchez MD - Last Filed: 07/18/20 08:27> Interval history: Feels better this morning. Vomited last night after dinner. Denies any further nausea or vomiting. Passing flatus and had BM this am. Only been OOB to bathroom. Pain is better controlled, only requiring PO analgesics. <Cristina Snyder PA-C - Last Filed: 07/18/20 07:56> Physical Exam Vital Signs: Vital Signs: Last Vital Signs Temp 97.7 F 07/18/20 07:37 Pulse 73 07/18/20 07:37 Resp 19 07/18/20 07:37 BP 151/71 H 07/18/20 07:37 Pulse Ox 94 07/18/20 07:37 Body Mass Index 32.5 <Cristina Snyder PA-C - Last Filed: 07/18/20 07:56> Const: General: comfortable, no acute distress and alert <Cristina Snyder PA-C - Last Filed: 07/18/20 07:56> Orientation/consciousness: patient oriented x3 <JANE Mora Last Filed: 07/18/20 07:56> Eyes: Sclerae: sclerae normal <Cristina Snyder PA-C - Last Filed: 07/18/20 07:56> Resp: Effort & Inspection: normal respiratory effort <Cristina Snyder PA-C - Last Filed: 07/18/20 07:56> Cardio: Rate: regular rate <JANE Mora Last Filed: 07/18/20 07:56> GI: Other: BE drain scanty serous drainage <JANE Mora Last Filed: 07/18/20 07:56> Inspection: Yes distended (mild) and Yes incision (clean) <JANE Mora Last Filed: 07/18/20 07:56> Palpation (GI): Soft to palpation, Tenderness to palpation present (GI) (mild, incisional), no guarding and No Rebound tenderness present <Cristina Snyder PA-C - Last Filed: 07/18/20 07:56> Skin: General skin exam: no rashes or lesions noted <Cristina Snyder PA-C - Last Filed: 07/18/20 07:56> Neuro: General: patient oriented x3 <Cristina Snyder PA-C - Last Filed: 07/18/20 07:56> Extrem: General: Yes no clubbing, cyanosis or edema <Cristina Snyder PA-C - Last Filed: 07/18/20 07:56> Progress Note: A&P Assessment and plan (1) S/P cholecystectomy: Status: Acute <Cristina Snyder PA-C - Last Filed: 07/18/20 07:56> Assessment and Plan: POD #2 s/p lap attempted converted to open CCY. Continues to do well post op. VSS. Abd exam remains benign, incisions clean, BE drain with serous drainage. WBC downtrending. Cont pain control. Encouraged IS use, OOB/ambulation of halls. Cont IV zosyn while inpatient. Likely home tomorrow if remains stable. Will remove drain prior. Patient comfortable with plan. <Cristina Snyder PA-C - Last Filed: 07/18/20 07:56> Patient has some nausea and vomiting last night after eating tomato soup, feels improved this morning. He reports a good night sleep. Agree with the above assessment and plan. Wounds are clean, dry, and intact without evidence of erythema. WBC remains elevated at a 16 but is down trending. Will repeat in the morning. <Edilson Sanchez MD - Last Filed: 07/18/20 08:27> (2) Diabetes: Status: Acute <Cristina Snyder PA-C - Last Filed: 07/18/20 07:56> (3) Acute cholecystitis: Status: Acute <Cristina Snyder PA-C - Last Filed: 07/18/20 07:56> Fall Risk Details Current Medications: Current Medications Generic Name Dose Route Start Last Admin Trade Name Freq PRN Reason Stop Dose Admin Acetaminophen 650 mg 07/15/20 17:27 Acetaminophen 325 Mg Tablet PO Q6H PRN Pain, Mild (Pain Scale 1-3) Al Hydroxide/Mg Hydroxide 30 ml 07/17/20 18:47 07/17/20 19:18 Magnesium Hydrox/Alum Hydrox 30 Ml Oral.Susp PO 30 ml Q6H PRN Administration Heartburn Atorvastatin Calcium 20 mg 07/15/20 21:00 07/17/20 21:09 Atorvastatin Calcium 20 Mg Tablet PO 20 mg BEDTIME SABINE Administration Piperacillin Sod/Tazobactam 50 mls @ 100 mls/hr 07/15/20 18:00 07/18/20 06:26 Sod 3.375 gm/ Sodium Chloride IV Infused Q6H SABINE Infusion Insulin Human Lispro 0 unit 07/15/20 17:27 07/17/20 21:09 Insulin Lispro 100 Unit/Ml 3 Ml Vial SUBCUT 4 unit QIDACHS SABINE Administration Protocol Lisinopril 10 mg 07/16/20 09:00 07/17/20 07:54 Lisinopril 10 Mg Tablet PO 10 mg DAILY SABINE Administration Protocol Magnesium Hydroxide 30 ml 07/15/20 17:27 Milk Of Magnesia 30 Ml Oral.Susp PO DAILY PRN Constipation Morphine Sulfate 4 mg 07/15/20 17:27 Morphine Sulfate 4 Mg/Ml Cartridge IVPUSH Q3H PRN Pain, Severe (Pain Scale 7-10) Ondansetron HCl 4 mg 07/17/20 18:47 07/17/20 19:18 Ondansetron Hcl 4 Mg/2 Ml Vial IVPUSH 4 mg Q6H PRN Administration Nausea and Vomiting Oxycodone HCl 5 mg 07/17/20 07:58 Oxycodone Hcl Immed Release 5 Mg Tablet PO Q4H PRN Pain, Moderate (Pain Scale 4-6 Pharmacy Consult 1 each 07/15/20 07:49 Consult Rx Perform Med Rec MISCELLANE ONCE PRN Consult order Sodium Chloride 3 ml 07/15/20 17:27 07/18/20 00:09 0.9 % Sodium Chloride Flush 3 Ml Syringe IVFLUSH 3 ml QSHIFT SABINE Administration Zolpidem Tartrate 5 mg 07/15/20 17:27 Zolpidem Tartrate 5 Mg Tablet PO BEDTIME PRN Insomnia <Cristina Snyder PA-C - Last Filed: 07/18/20 07:56> Time Spent With Patient Time: Total time spent is greater than 50% in coordination of care (as documented) at patient's floor/unit and/or counseling patient: <Cristina Snyder PA-C - Last Filed: 07/18/20 07:56> Time with patient: 15 - 24 minutes <Cristina Snyder PA-C - Last Filed: 07/18/20 07:56> No Severe Sepsis: No Severe Sepsis <JANE Mora Last Filed: 07/18/20 07:56>
[2020-07-18 08:11] LABS: Glucose, Whole Blood 155 mg/dL (60-115)
[2020-07-18] MEDS: Insulin Lispro 100 UNIT/ML 3 ML VIAL SUBCUT ×3 (08:18→20:12)
[2020-07-18 08:19] VITALS: BP 151/71
[2020-07-18] MEDS: lisinopriL 10 MG TABLET PO (08:19)
[2020-07-18 12:00] VITALS: BP 139/72; PULSE 71; RESP 18; TEMP 36.3; O2SAT 96
[2020-07-18 12:12] LABS: Glucose, Whole Blood 171 mg/dL (60-115)
--- NOTE | 2020-07-18 12:37 | HO.PM.IMPN ---
Subjective Subjective Date of Service: 07/18/20 Interval History: Postop pain well-controlled on oral meds. Vomiting overnight- thinks the tomato soup was not agreeable to his stomach. Feels well today. No fever. No chest pain or dyspnea. Physical Exam Vital Signs: Vital Signs: Last Vital Signs Temp 97.3 F 07/18/20 12:00 Pulse 71 07/18/20 12:00 Resp 18 07/18/20 12:00 BP 139/72 07/18/20 12:00 Pulse Ox 96 07/18/20 12:00 Body Mass Index 32.5 Gen: in no acute distress HEENT: sclera anicteric, moist mucus membranes Neck: supple Lungs: clear to auscultation bilaterally Heart: regular rate and rhythm, no murmurs Abd: Maria Alejandra incision with Steristrips, BE drain with minimal serosanguinous drainage Ext: no edema Skin: warm/well-perfused Neuro: alert and oriented x3, no focal findings Psych: appropriate affect Objective Data Current Medications Generic Name Dose Route Start Last Admin Trade Name Tobiq PRN Reason Stop Dose Admin Acetaminophen 650 mg 07/15/20 17:27 Acetaminophen 325 Mg Tablet PO Q6H PRN Pain, Mild (Pain Scale 1-3) Al Hydroxide/Mg Hydroxide 30 ml 07/17/20 18:47 07/17/20 19:18 Magnesium Hydrox/Alum Hydrox 30 Ml Oral.Susp PO 30 ml Q6H PRN Administration Heartburn Atorvastatin Calcium 20 mg 07/15/20 21:00 07/17/20 21:09 Atorvastatin Calcium 20 Mg Tablet PO 20 mg BEDTIME SABINE Administration Piperacillin Sod/Tazobactam 50 mls @ 100 mls/hr 07/15/20 18:00 07/18/20 06:26 Sod 3.375 gm/ Sodium Chloride IV Infused Q6H SABINE Infusion Insulin Human Lispro 0 unit 07/15/20 17:27 07/18/20 08:18 Insulin Lispro 100 Unit/Ml 3 Ml Vial SUBCUT 2 unit QIDACHS SABINE Administration Protocol Lisinopril 10 mg 07/16/20 09:00 07/18/20 08:19 Lisinopril 10 Mg Tablet PO 10 mg DAILY SABINE Administration Protocol Magnesium Hydroxide 30 ml 07/15/20 17:27 Milk Of Magnesia 30 Ml Oral.Susp PO DAILY PRN Constipation Morphine Sulfate 4 mg 07/15/20 17:27 Morphine Sulfate 4 Mg/Ml Cartridge IVPUSH Q3H PRN Pain, Severe (Pain Scale 7-10) Ondansetron HCl 4 mg 07/17/20 18:47 07/17/20 19:18 Ondansetron Hcl 4 Mg/2 Ml Vial IVPUSH 4 mg Q6H PRN Administration Nausea and Vomiting Oxycodone HCl 5 mg 07/17/20 07:58 Oxycodone Hcl Immed Release 5 Mg Tablet PO Q4H PRN Pain, Moderate (Pain Scale 4-6 Pharmacy Consult 1 each 07/15/20 07:49 Consult Rx Perform Med Rec MISCELLANE ONCE PRN Consult order Sodium Chloride 3 ml 07/15/20 17:27 07/18/20 08:19 0.9 % Sodium Chloride Flush 3 Ml Syringe IVFLUSH 3 ml QSHIFT SABINE Administration Zolpidem Tartrate 5 mg 07/15/20 17:27 Zolpidem Tartrate 5 Mg Tablet PO BEDTIME PRN Insomnia Labs CBC & Chem 7: 07/18/20 06:18 07/17/20 06:53 Labs: Laboratory Results - last 24 hr 07/17/20 07/17/20 07/18/20 16:10 20:56 06:18 WBC 16.3 H RBC 4.91 Hgb 14.8 Hct 45.6 MCV 92.9 MCH 30.1 MCHC 32.5 RDW 13.2 Plt Count 286 MPV 9.9 Immature Gran % (Auto) 0.7 H Neut % (Auto) 81.2 H Lymph % (Auto) 7.6 L Gaines % (Auto) 8.6 Eos % (Auto) 1.7 Baso % (Auto) 0.2 Lymph # (Auto) 1.2 Gaines # (Auto) 1.4 H Eos # (Auto) 0.3 Baso # (Auto) 0.0 Abs Immat Gran (auto) 0.11 H Absolute Neuts (auto) 13.3 H Absolute Nucleated RBC 0.000 Nucleated RBC % (auto) 0.0 POC Glucose 179 H 202 H 07/18/20 07/18/20 07:34 11:13 WBC RBC Hgb Hct MCV MCH MCHC RDW Plt Count MPV Immature Gran % (Auto) Neut % (Auto) Lymph % (Auto) Gaines % (Auto) Eos % (Auto) Baso % (Auto) Lymph # (Auto) Gaines # (Auto) Eos # (Auto) Baso # (Auto) Abs Immat Gran (auto) Absolute Neuts (auto) Absolute Nucleated RBC Nucleated RBC % (auto) POC Glucose 155 H 171 H Microbiology Microbiology Results: Microbiology 07/15/20 07:21 Blood - Venous Blood Culture - Preliminary No growth after 48 hours. 07/15/20 07:08 Blood - Venous Blood Culture - Preliminary No growth after 48 hours. Assessment and Plan (1) Diabetes: Status: Acute Assessment and Plan: hospital d#4 69yo M with DM2, HTN, HLD admitted to general surgery service for acute gangrenous cholecystitis POD #2 lap->open cholecystectomy due to extensive adhesions medicine consultation for management of comorbid conditions # HTN - continue lisinopril # HLD - continue statin # DM2, A1c 7.7 - hold OHGs, give correction-dose lispro # acute cholecystitis - pip/dario d#4, POD #2 lap->open CCY # VTE ppx - SCDs, add LMWH when OK with surgery
[2020-07-18 15:46] VITALS: BP 137/71; PULSE 79; RESP 18; TEMP 36.8; O2SAT 98
[2020-07-18] MEDS: ondansetron HCL 4 MG/2 ML VIAL IVPUSH (16:25)
[2020-07-18 16:47] LABS: Glucose, Whole Blood 143 mg/dL (60-115)
[2020-07-18] MEDS: Magnesium Hydrox/Alum Hydrox 30 ML ORAL.SUSP PO (17:11)
[2020-07-18 19:16] VITALS: BP 144/86; PULSE 79; RESP 18; TEMP 37.2; O2SAT 93
[2020-07-18] MEDS: Lactated Ringers 500 ML 80 ML IV (19:59)
[2020-07-18 20:12] LABS: Glucose, Whole Blood 178 mg/dL (60-115)
[2020-07-18] MEDS: Atorvastatin Calcium 20 MG TABLET PO (20:12)
[2020-07-19 00:26] VITALS: BP 146/81; PULSE 82; RESP 14; TEMP 37.1; O2SAT 95
[2020-07-19] MEDS: Piperacillin Sodium/Tazobactam 3.375 GM in 0.9 % Sodium Chloride 50 ML IV ×2 (00:28→05:37)
[2020-07-19] MEDS: 0.9 % Sodium Chloride Flush 3 ML SYRINGE IVFLUSH ×2 (00:29→08:24)
[2020-07-19 01:10] LABS: Glucose, Whole Blood 137 mg/dL (60-115)
[2020-07-19 04:00] VITALS: BP 117/85; PULSE 78; RESP 14; TEMP 36.5; O2SAT 95
[2020-07-19 06:25] LABS: MANUAL DIFF FLAG NO
[2020-07-19 06:37] LABS: Basophils Percent Auto 0.2 % (0-2); Eosinophils Absolute Auto 0.3 X10*3/uL (0.0-0.4); Eosinophils Percent Auto 1.9 % (0-4); Hematocrit 49.3 % (42-52); Hemoglobin 15.9 g/dl (14.0-18.0); Imm Gran Abs Auto 0.07 X10*3/uL (0.00-0.03); Imm Gran Pct Auto 0.5 % (0.0-0.4); Lymphocytes Absolute Auto 1.3 X10*3/uL (1.2-4.9); Lymphocytes Percent Auto 9.4 % (20-40); Mean Corpuscular HGB Conc 32.3 g/dl (31.0-36.0); Mean Corpuscular Hemoglobin 30.1 pg (27.0-33.0); Mean Corpuscular Volume 93.4 fL (80-98); Mean Platelet Volume 9.7 fL (9.4-12.4); Monocytes Absolute Auto 1.4 X10*3/uL (0.1-1.2); Neutrophils Absolute Auto 10.7 X10*3/uL (2.0-8.3); Platelet Count 331 X10*3/uL (160-400); Red Blood Count 5.28 X10*6/uL (4.60-5.80); Red Cell Distribution Width 13.3 % (11.0-16.0); White Blood Count 13.8 X10*3/uL (4.8-10.8)
[2020-07-19 07:56] VITALS: BP 135/91; PULSE 83; RESP 17; TEMP 36.2; O2SAT 96
--- NOTE | 2020-07-19 07:57 | PM.PNGS ---
Subjective Subjective Date of Service: 07/19/20 <Cristina Snyder PA-C - Last Filed: 07/19/20 08:00> 07/19/20 <Edilson Sanchez MD - Last Filed: 07/19/20 08:16> Interval history: Vomited a few times overnight. Feels much better this morning. Passed flatus and had two BM. OOB to bathroom without difficulty. <Cristina Snyder PA-C - Last Filed: 07/19/20 08:00> Physical Exam Vital Signs: Vital Signs: Last Vital Signs Temp 97.7 F 07/19/20 04:00 Pulse 78 07/19/20 04:00 Resp 14 07/19/20 04:00 BP 117/85 07/19/20 04:00 Pulse Ox 95 07/19/20 04:00 Body Mass Index 32.5 <Cristina Snyder PA-C - Last Filed: 07/19/20 08:00> Const: General: healthy appearing, comfortable, no acute distress and alert <Cristina Snyder PA-C - Last Filed: 07/19/20 08:00> Orientation/consciousness: patient oriented x3 <Cristina Snyder PA-C - Last Filed: 07/19/20 08:00> Eyes: Sclerae: sclerae normal <Cristina Snyder PA-C - Last Filed: 07/19/20 08:00> Resp: Effort & Inspection: normal respiratory effort <Cristina Snyder PA-C - Last Filed: 07/19/20 08:00> GI: Other: BE drain scanty serous output, removed <Cristina Snyder PA-C - Last Filed: 07/19/20 08:00> Inspection: No distended and Yes incision (clean) <JANE Mora Last Filed: 07/19/20 08:00> Palpation (GI): Soft to palpation, nontender, no guarding and No Rebound tenderness present <Cristina Snyder PA-C - Last Filed: 07/19/20 08:00> Skin: General skin exam: no rashes or lesions noted <Cristina Snyder PA-C - Last Filed: 07/19/20 08:00> Neuro: General: patient oriented x3 <Cristina Snyder PA-C - Last Filed: 07/19/20 08:00> Extrem: General: Yes no clubbing, cyanosis or edema <Cristina Snyder PA-C - Last Filed: 07/19/20 08:00> Progress Note: A&P Assessment and plan (1) S/P cholecystectomy: Status: Acute <Cristina Snyder PA-C - Last Filed: 07/19/20 08:00> Assessment and Plan: POD #3 s/p lap attempted converted to open CCY. Feels well this morning- moving bowels. VSS. Abd exam remains benign, incisions clean, BE drain with serous drainage and was removed. WBC continues to downtrend and almost normalized. Patient feels ready for discharge. Will d/c today. F/u in office in [address] Sanchez. Patient comfortable with plan. <Cristina Snyder PA-C - Last Filed: 07/19/20 08:00> Patient feels much improved with incisional pain. He had no further nausea or vomiting. Lg-Edge drain was removed this morning agree with the above assessment and plan. Patient should avoid lifting greater than 10 lb for the next month and avoid fatty/greasy foods during this time. He should call for fever, chills, nausea, vomiting, or other concerns. Follow-up in the office in 1 week. <Edilson Sanchez MD - Last Filed: 07/19/20 08:16> (2) Diabetes: Status: Acute <Cristina Snyder PA-C - Last Filed: 07/19/20 08:00> (3) Acute cholecystitis: Status: Acute <JANE Mora Last Filed: 07/19/20 08:00> Fall Risk Details Current Medications: Current Medications Generic Name Dose Route Start Last Admin Trade Name Freq PRN Reason Stop Dose Admin Acetaminophen 650 mg 07/15/20 17:27 Acetaminophen 325 Mg Tablet PO Q6H PRN Pain, Mild (Pain Scale 1-3) Al Hydroxide/Mg Hydroxide 30 ml 07/17/20 18:47 12/10/20 17:11 Magnesium Hydrox/Alum Hydrox 30 Ml Oral.Susp PO 30 ml Q6H PRN Administration Heartburn Atorvastatin Calcium 20 mg 07/15/20 21:00 07/18/20 20:12 Atorvastatin Calcium 20 Mg Tablet PO 20 mg BEDTIME SABINE Administration Piperacillin Sod/Tazobactam 50 mls @ 100 mls/hr 07/15/20 18:00 07/19/20 06:08 Sod 3.375 gm/ Sodium Chloride IV Infused Q6H SABINE Infusion Promethazine HCl 12.5 mg/ 50.5 mls @ 202 mls/hr 07/18/20 18:41 07/18/20 20:14 Sodium Chloride IV Infused Q4H PRN Infusion Vomiting Insulin Human Lispro 0 unit 07/15/20 17:27 07/18/20 20:12 Insulin Lispro 100 Unit/Ml 3 Ml Vial SUBCUT 2 unit QIDACHS SABINE Administration Protocol Lisinopril 10 mg 07/16/20 09:00 07/18/20 08:19 Lisinopril 10 Mg Tablet PO 10 mg DAILY SABINE Administration Protocol Magnesium Hydroxide 30 ml 07/15/20 17:27 Milk Of Magnesia 30 Ml Oral.Susp PO DAILY PRN Constipation Morphine Sulfate 4 mg 07/15/20 17:27 Morphine Sulfate 4 Mg/Ml Cartridge IVPUSH Q3H PRN Pain, Severe (Pain Scale 7-10) Ondansetron HCl 4 mg 07/17/20 18:47 07/18/20 16:25 Ondansetron Hcl 4 Mg/2 Ml Vial IVPUSH 4 mg Q6H PRN Administration Nausea and Vomiting Oxycodone HCl 5 mg 07/17/20 07:58 Oxycodone Hcl Immed Release 5 Mg Tablet PO Q4H PRN Pain, Moderate (Pain Scale 4-6 Pharmacy Consult 1 each 07/15/20 07:49 Consult Rx Perform Med Rec MISCELLANE ONCE PRN Consult order Sodium Chloride 3 ml 07/15/20 17:27 07/19/20 00:29 0.9 % Sodium Chloride Flush 3 Ml Syringe IVFLUSH 3 ml QSHIFT SABINE Administration Zolpidem Tartrate 5 mg 07/15/20 17:27 Zolpidem Tartrate 5 Mg Tablet PO BEDTIME PRN Insomnia <Cristina Snyder PA-C - Last Filed: 07/19/20 08:00> Time Spent With Patient Time: Total time spent is greater than 50% in coordination of care (as documented) at patient's floor/unit and/or counseling patient: <Cristina Snyder PA-C - Last Filed: 07/19/20 08:00> Time with patient: 15 - 24 minutes <Cristina Snyder PA-C - Last Filed: 07/19/20 08:00>
[2020-07-19 08:15] LABS: Glucose, Whole Blood 128 mg/dL (60-115)
[2020-07-19 08:18] VITALS: BP 135/83; PULSE 85
[2020-07-19] MEDS: lisinopriL 10 MG TABLET PO (08:18)
--- NOTE | 2020-07-19 08:27 | MHC.CM.PN ---
Pt being discharged home today. No services ordered. Family to transport
--- NOTE | 2020-07-19 08:51 | PM.DS ---
DS: Providers Provider Date of admission: 07/15/20 10:15 Primary care physician: Susannah Fernandez MD Consults: 07/15/20 10:15 Consult to Hospitalist Routine Consulting Provider: Hospitalist Reason for consultation: Diabetes, acute cholecystitis, med management DS: Diagnosis Discharge Diagnosis (1) S/P cholecystectomy: Status: Acute (2) Diabetes: Status: Acute (3) Acute cholecystitis: Status: Acute DS: Medications Discharge Medications Home Medications: Home Medications Medication Instructions Recorded Confirmed Jardiance 10 mg PO DAILY 07/15/20 07/15/20 glipizide 1 tab PO BID 07/15/20 07/15/20 lisinopril 10 mg PO DAILY 07/15/20 07/15/20 metformin 1,000 mg PO BID 07/15/20 07/15/20 simvastatin 40 mg PO BEDTIME 07/15/20 07/15/20 Previous Rx's Medication Instructions Recorded oxycodone 5 mg PO Q4-6H PRN #24 tab 07/18/20 DS: Summary Hospital Course Hospital Course: BRIEF HPI: Selvin Pereira JR is a 69 year old male presenting with complaints of abdominal pain in the upper abdomen starting last evening at approximately 20:00. He reports the pain started after eating dinner several hours prior. He reports several episodes of nausea and vomiting including upon presentation to the emergency department. He denies a previous history of similar symptoms. Upon presentation to the emergency department he was noted to be tender in the right upper quadrant. WBC was noted to be markedly elevated. A CT of the abdomen and pelvis revealed thickened gallbladder with gallstones within the gallbladder. A stone was noted in the cystic duct but the common bile duct was felt to be normal in size. Hospital Course: Patient is admitted to the surgical service for further management of acute cholecystitis. An ultrasound will be ordered to further evaluate the wall thickness. He was started on IV zosyn. A laparoscopic or possible open cholecystectomy anticipated in the next 1-2 days. Hospitalist consultation was obtained for management of patient's diabetes mellitus. On 07/16/2020, an attempted laparoscopic, converted to open cholecystectomy was performed by Dr. Sanchez without complication. The omentum was noted to be densely adherent to the liver and gallbladder and was unable to be disected free, therefore the procedure was converted to open. The patient was also found to have a gangrenous gallbladder once the omentum was freed. A BE drain was placed intraoperatively. He tolerated the procedure well and was transferred to the medical/surgical floor for observation. The patient had an uncomplicated recovery course. He remained inpatient until POD #3 for IV antibiotics and pain control. His WBC was significantly elevated but continually downtrended and almost normalized post operatively. On the day of discharge, he was tolerating a solid diet, his pain was well controlled on PO analgesics and he was OOB and ambulating. His abdominal exam was benign with clean incisions; his BE drain had scanty serous drainage and was therefore removed. He felt ready for discharge and was discharged to home on 07/19/20 in stable condition. Status at Discharge Functional status at discharge: independent ambulation Overall status at discharge: patient is progressing back to baseline Time Spent with Patient Time attestation: Total time spent providing and/or coordinating discharge services: Discharge coordination time: Less than 30 minutes Physical Exam Vital Signs: Vital Signs: Last Vital Signs Temp 97.2 F 07/19/20 07:56 Pulse 85 07/19/20 08:18 Resp 17 07/19/20 07:56 BP 135/83 07/19/20 08:18 Pulse Ox 96 07/19/20 07:56 Body Mass Index 32.5 Const: General: healthy appearing, comfortable, no acute distress and alert Orientation/consciousness: patient oriented x3 Eyes: Sclerae: sclerae normal Resp: Effort & Inspection: normal respiratory effort GI: Inspection: No distended and Yes incision (clean) Palpation (GI): Soft to palpation, nontender, no guarding and No Rebound tenderness present Skin: Other: normal color, warm and dry General skin exam: no rashes or lesions noted Neuro: General: patient oriented x3 Extrem: General: Yes no clubbing, cyanosis or edema DS: Data Data Completed and Pending Pending studies at discharge: Pending at discharge 07/16/20 13:36 Surgical [PTH] Routine Labs on day of discharge: 07/15/20 06:52 HYDROmorphone HCl [Dilaudid] 1 mg IVPUSH ONCE ONE ondansetron HCL [Zofran] 4 mg IVPUSH ONCE ONE 07/15/20 06:53 CT abdomen pelvis w con Stat 07/15/20 06:54 ECG 12 lead EKG Stat EKG Documentation DIRECTED 07/15/20 07:00 0.9 % Sodium Chloride [Ns] 1,000 ml IVCONT 999 mls/hr 07/15/20 07:08 Basic Metabolic Panel Stat Complete Blood Count Auto Diff Stat Lactic Acid Stat Lipase Stat Liver Panel Stat Magnesium Stat Partial Thromboplastin Time Stat Prothrombin Time INR Stat SLIDE REVIEW Stat Troponin-I High Sensitivity Stat 07/15/20 07:46 Piperacillin Sodium/Tazobactam [Zosyn] 3.375 gm 0.9 % Sodium Chloride [Ns] 50 ml IV ONCE 07/15/20 07:49 Piperacillin Sodium/Tazobactam [Zosyn] 3.375 gm IV .STK-MED ONE 07/15/20 08:00 0.9 % Sodium Chloride [Ns] 1,000 ml IVCONT 999 mls/hr 07/15/20 08:41 iohexoL 350 MG/ML [Omnipaque 350 MG/ML] 85 ml IV ONCE ONE 07/15/20 08:46 COVID-19 ID NOW ([place]) Stat 07/15/20 09:14 US abdomen limited Stat 07/15/20 09:33 ~Lactic Acid-LAB USE ONLY Stat 07/15/20 09:57 Transfer Order Routine 07/15/20 10:24 HYDROmorphone HCl [Dilaudid] 1 mg IVPUSH ONCE ONE 07/15/20 17:27 Lactated Ringers [Lr] 1,000 ml IVCONT 125 mls/hr oxyCODONE HCl Immed Release [Roxicodone] 5 mg PO Q6H PRN 07/15/20 17:27 Compression Therapy QSHIFT IV insert/maintain Q4HR Vital Signs QSHIFT 07/15/20 18:06 Piperacillin Sodium/Tazobactam [Zosyn] 3.375 gm IV .STK-MED ONE 07/15/20 18:13 Glucose, Whole Blood Routine 07/15/20 20:52 Glucose, Whole Blood Routine 07/16/20 00:16 Piperacillin Sodium/Tazobactam [Zosyn] 3.375 gm IV .STK-MED ONE 07/16/20 05:45 Piperacillin Sodium/Tazobactam [Zosyn] 3.375 gm IV .STK-MED ONE 07/16/20 06:00 Hemoglobin A1c Routine 07/16/20 06:11 Basic Metabolic Panel DAILY@0600 Complete Blood Count no Diff DAILY@0600 07/16/20 07:21 Transfer Order Routine 07/16/20 07:46 Glucose, Whole Blood Routine 07/16/20 08:37 cefoTEtan disod/Dextrose,Iso [Cefotan] 2 gm in 50 ml IV PREOP 07/16/20 08:37 Anesthesia Type Routine 07/16/20 09:04 Add Laboratory Test Routine 07/16/20 10:52 cefoTEtan disodium [Cefotan] 2 gm .ROUTE .STK-MED ONE 07/16/20 10:54 Glucose, Whole Blood Routine 07/16/20 11:10 Compression Therapy QSHIFT 07/16/20 11:25 Rocuronium [place] [Zemuron] 100 mg IV .STK-MED ONE dexAMETHasone sod phosphate [Decadron] 4 mg .ROUTE .STK-MED ONE fentaNYL citrate/PF [Sublimaze] 50 mcg .ROUTE .STK-MED ONE ondansetron HCL [Zofran] 4 mg .ROUTE .STK-MED ONE propofoL [Diprivan] 200 mg IVPUSH .STK-MED ONE 07/16/20 11:27 Sugammadex Sodium [[place]] 200 mg IVPUSH .STK-MED ONE 07/16/20 11:49 Bupivacaine MPF 0.75 % w/EPI [Sensorcaine MPF 0.75%/EPI 1:200,000] 30 ml .ROUTE .STK-MED ONE 07/16/20 12:07 Lidocaine HCl 2 % MPF [Xylocaine 2 % MPF] 5 ml .ROUTE .STK-MED ONE Midazolam HCl/PF [Versed] 2 mg .ROUTE .STK-MED ONE dexAMETHasone sod phosphate [Decadron] 4 mg .ROUTE .STK-MED ONE fentaNYL citrate/PF [Sublimaze] 50 mcg .ROUTE .STK-MED ONE ondansetron HCL [Zofran] 4 mg .ROUTE .STK-MED ONE propofoL [Diprivan] 200 mg IVPUSH .STK-MED ONE 07/16/20 12:08 Rocuronium [place] [Zemuron] 100 mg IV .STK-MED ONE 07/16/20 14:09 Transfer Order Routine 07/16/20 14:17 Acetaminophen [Ofirmev] 1,000 mg in 100 ml IV As directed 07/16/20 14:25 Vital Signs Q1H Acetaminophen [Tylenol] 650 mg PO ONCE PRN fentaNYL citrate/PF [Sublimaze] 50 mcg IVPUSH Q5M PRN oxyCODONE HCl Immed Release [Roxicodone] 5 mg PO ONCE PRN 07/16/20 15:07 oxyCODONE HCl Immed Release [Roxicodone] 5 mg PO ONCE PRN 07/16/20 15:14 oxyCODONE HCl Immed Release [Roxicodone] 5 mg .ROUTE .STK-MED ONE 07/16/20 Lunch Diabetic Diet 07/16/20 16:28 Glucose, Whole Blood Routine 07/16/20 18:06 Piperacillin Sodium/Tazobactam [Zosyn] 3.375 gm IV .STK-MED ONE 07/16/20 20:25 Glucose, Whole Blood Routine 07/16/20 23:44 Piperacillin Sodium/Tazobactam [Zosyn] 3.375 gm IV .STK-MED ONE 07/17/20 06:05 Piperacillin Sodium/Tazobactam [Zosyn] 3.375 gm IV .STK-MED ONE 07/17/20 06:53 Basic Metabolic Panel DAILY@0600 Complete Blood Count Auto Diff DAILY@0600 07/17/20 07:47 Glucose, Whole Blood Routine 07/17/20 10:53 Glucose, Whole Blood Routine 07/17/20 11:38 Piperacillin Sodium/Tazobactam [Zosyn] 3.375 gm IV .STK-MED ONE 07/17/20 16:10 Glucose, Whole Blood Routine 07/17/20 17:46 Piperacillin Sodium/Tazobactam [Zosyn] 3.375 gm IV .STK-MED ONE 07/17/20 20:56 Glucose, Whole Blood Routine 07/18/20 00:04 Piperacillin Sodium/Tazobactam [Zosyn] 3.375 gm IV .STK-MED ONE 07/18/20 05:42 Piperacillin Sodium/Tazobactam [Zosyn] 3.375 gm IV .STK-MED ONE 07/18/20 06:18 Complete Blood Count Auto Diff Routine 07/18/20 07:34 Glucose, Whole Blood Routine 07/18/20 11:13 Glucose, Whole Blood Routine 07/18/20 12:49 Piperacillin Sodium/Tazobactam [Zosyn] 3.375 gm IV .STK-MED ONE 07/18/20 16:41 Glucose, Whole Blood Routine 07/18/20 18:16 Piperacillin Sodium/Tazobactam [Zosyn] 3.375 gm IV .STK-MED ONE 07/18/20 18:45 Lactated Ringers [Lr] 500 ml IV 80 mls/hr 07/18/20 19:22 Promethazine HCL [Phenergan] 25 mg IV .STK-MED ONE 07/18/20 20:06 Glucose, Whole Blood Routine 07/18/20 20:45 Glucose, Whole Blood Routine 07/19/20 00:12 Piperacillin Sodium/Tazobactam [Zosyn] 3.375 gm IV .STK-MED ONE 07/19/20 05:30 Piperacillin Sodium/Tazobactam [Zosyn] 3.375 gm IV .STK-MED ONE 07/19/20 06:06 Complete Blood Count Auto Diff DAILY@0600 07/19/20 07:56 Glucose, Whole Blood Routine Laboratory Last Values WBC 13.8 X10*3/uL (4.8-10.8) H 07/19/20 06:06 RBC 5.28 X10*6/uL (4.60-5.80) 07/19/20 06:06 Hgb 15.9 g/dl (14.0-18.0) 07/19/20 06:06 Hct 49.3 % (42-52) 07/19/20 06:06 MCV 93.4 fL (80-98) 07/19/20 06:06 MCH 30.1 pg (27.0-33.0) 07/19/20 06:06 MCHC 32.3 g/dl (31.0-36.0) 07/19/20 06:06 RDW 13.3 % (11.0-16.0) 07/19/20 06:06 Plt Count 331 X10*3/uL (160-400) 07/19/20 06:06 MPV 9.7 fL (9.4-12.4) 07/19/20 06:06 Immature Gran % (Auto) 0.5 % (0.0-0.4) H 07/19/20 06:06 Neut % (Auto) 78.0 % (45-73) H 07/19/20 06:06 Lymph % (Auto) 9.4 % (20-40) L 07/19/20 06:06 [place] % (Auto) 10.0 % (2-11) 07/19/20 06:06 Eos % (Auto) 1.9 % (0-4) 07/19/20 06:06 Baso % (Auto) 0.2 % (0-2) 07/19/20 06:06 Lymph # (Auto) 1.3 X10*3/uL (1.2-4.9) 07/19/20 06:06 [place] # (Auto) 1.4 X10*3/uL (0.1-1.2) H 07/19/20 06:06 Eos # (Auto) 0.3 X10*3/uL (0.0-0.4) 07/19/20 06:06 Baso # (Auto) 0.0 X10*3/uL (0.0-0.2) 07/19/20 06:06 Abs Immat Gran (auto) 0.07 X10*3/uL (0.00-0.03) H 07/19/20 06:06 Absolute Neuts (auto) 10.7 X10*3/uL (2.0-8.3) H 07/19/20 06:06 Absolute Nucleated RBC 0.000 X10*3/uL (0.0-0.012) 07/19/20 06:06 Nucleated RBC % (auto) 0.0 /100WBC (0.0-0.2) 07/19/20 06:06 Smear Tech's Comments VERIFIED 07/15/20 07:08 PT 12.0 SEC (10.8-13.0) 07/15/20 07:08 INR 1.0 (0.9-1.1) 07/15/20 07:08 APTT 35.5 SEC (24.1-38.0) 07/15/20 07:08 Sodium 138 mmol/L (135-145) 07/17/20 06:53 Potassium 4.7 mmol/l (3.3-5.1) 07/17/20 06:53 Chloride 102 mmol/L (96-108) 07/17/20 06:53 Carbon Dioxide 21 mmol/L (22-29) L 07/17/20 06:53 Anion Gap 20 (12-20) 07/17/20 06:53 BUN 27 mg/dL (9-16) H 07/17/20 06:53 Creatinine 1.20 mg/dL (0.5-1.4) 07/17/20 06:53 Estim Creat Clear Calc 67.9 07/17/20 06:53 Estimated GFR 60 07/17/20 06:53 POC Glucose 128 mg/dL (60-115) H 07/19/20 07:56 Random Glucose 135 mg/dL (60-115) H 07/17/20 06:53 Estimat Average Glucose 174 mg/dL 07/16/20 06:00 Hemoglobin A1c % 7.7 % 07/16/20 06:00 Lactic Acid 2.6 mmol/L (0.5-2.0) H* 07/15/20 07:08 Lactic Acid Fup @ 2Hr 2.0 mmol/L (0.5-2.0) 07/15/20 09:33 Calcium 7.9 mg/dL (8.4-10.2) L 07/17/20 06:53 Magnesium 2.1 mg/dL (1.6-2.6) 07/15/20 07:08 Total Bilirubin 1.4 mg/dL (0.0-1.0) H 07/15/20 07:08 Direct Bilirubin 0.4 mg/dL (0.0-0.5) 07/15/20 07:08 AST 24 U/L (5-37) 07/15/20 07:08 ALT 36 U/L (0-40) 07/15/20 07:08 Alkaline Phosphatase 79 U/L (39-117) 07/15/20 07:08 Troponin I High Sens < 3.5 ng/L (<3.5-35.0) 07/15/20 07:08 Total Protein 7.6 g/dL (6.5-8.0) 07/15/20 07:08 Albumin 4.5 g/dL (3.5-5.0) 07/15/20 07:08 Lipase 41 U/L (8-78) 07/15/20 07:08 Urine Color YELLOW 07/15/20 09:26 Urine Appearance CLEAR 07/15/20 09:26 Urine pH 7.0 (5.0-8.0) 07/15/20 09:26 Ur Specific [place] <= 1.005 (1.005-1.025) 07/15/20 09:26 Urine Protein NEG MG/DL (NEG-TRACE) 07/15/20 09:26 Urine Glucose (UA) >=1000 MG/DL (NEG) H 07/15/20 09:26 Urine Ketones NEG MG/DL (NEG) 07/15/20 09:26 Urine Blood NEG (NEG) 07/15/20 09:26 Urine Nitrite NEG (NEG) 07/15/20 09:26 Ur Leukocyte Esterase NEG (NEG) 07/15/20 09:26 Urine RBC 0 /HPF (0) 07/15/20 09:26 Urine WBC 0 /HPF (0-4) 07/15/20 09:26 Ur Squamous Epith Cells TRACE /LPF 07/15/20 09:26 Urine Bacteria NONE /LPF 07/15/20 09:26 COVID-19 (BABATUNDE) Negative (Negative) 07/15/20 08:46 COVID-19 Clin Com See Note 07/15/20 08:46 Preliminary micro results at discharge 07/15/20 07:21 Blood Culture - Preliminary Blood - Venous No growth after 48 hours. 07/15/20 07:08 Blood Culture - Preliminary Blood - Venous No growth after 48 hours. Discharge Plan Discharge Patient Disposition: Home, Self-Care Referrals: Susannah Fernandez MD [Primary Care Provider] - Edilson Sanchez MD [Physician] - 1 Week Discharge Medications: New oxycodone 5 mg tablet 5 mg PO Q4-6H PRN (Reason: pain) Qty: 24 RF: 0 Continued glipizide 10 mg tablet 1 tab PO BID RF: 0 simvastatin 40 mg tablet 40 mg PO BEDTIME RF: 0 metformin 1,000 mg tablet 1,000 mg PO BID RF: 0 lisinopril 10 mg tablet 10 mg PO DAILY RF: 0 Jardiance 10 mg tablet 10 mg PO DAILY RF: 0 Discharge Orders: Discharge Order (Routine); Ordered 07/19/20 Ordered By: Cristina Snyder Diet: diabetic diet and low fat, low cholesterol Activity on Discharge: No heavy lifting Patient Instructions: Open Cholecystectomy (DC) Activity Restrictions/Additional Instructions: If the incision area is tender, you may apply an ice pack for short intervals (No more than 20 minutes on, followed by at least 20 minutes off). Do not apply heat. Do not use creams, lotions, or topical antibiotics unless instructed to do so by your surgeon. These can cause infection or allergic reaction. Ok to shower. You have bridgett closing your incision and these will be removed approximately 10-14 days after surgery. Call Your Doctor If: -Your temperature exceeds 101.5? F -You experience excessive pain or swelling -You have an unexpected reaction to medication -You have excessive bleeding -You experience continued vomiting/nausea -Your incision begins to separate -Your incision shows signs of infection such as increased redness, swelling, excessive pain, drainage (light blood or clear fluid is normal) or heat Visit Report Forms: Patient Portal Discharge page Care Plan Goals: Return to baseline health and activity. Health Concerns: Acute cholecystitis, s/p cholecystectomy; diabetes mellitus Plan of Treatment: S/p open cholecystectomy, IV antibiotics, BE drain
--- NOTE | 2020-07-19 11:58 | P.PNIM_ITS ---
Subjective Subjective Date of Service: 07/19/20 Interval History: late entry, pt seen at 0915 postop pain controlled, no N/V, no fever BE removed by surgery Physical Exam Vital Signs: Vital Signs: Last Vital Signs Temp 97.2 F 07/19/20 07:56 Pulse 85 07/19/20 08:18 Resp 17 07/19/20 07:56 BP 135/83 07/19/20 08:18 Pulse Ox 96 07/19/20 07:56 Body Mass Index 32.5 Gen: in no acute distress HEENT: sclera anicteric, moist mucus membranes Neck: supple Lungs: clear to auscultation bilaterally Heart: regular rate and rhythm, no murmurs Abd: Maria Alejandra incision with Steristrips Ext: no edema Skin: warm/well-perfused Neuro: alert and oriented x3, no focal findings Psych: appropriate affect Objective Data Labs CBC & Chem 7: 07/19/20 06:06 07/17/20 06:53 Labs: Laboratory Results - last 24 hr 07/18/20 07/18/20 07/18/20 11:13 16:41 20:06 WBC RBC Hgb Hct MCV MCH MCHC RDW Plt Count MPV Immature Gran % (Auto) Neut % (Auto) Lymph % (Auto) [place] % (Auto) Eos % (Auto) Baso % (Auto) Lymph # (Auto) [place] # (Auto) Eos # (Auto) Baso # (Auto) Abs Immat Gran (auto) Absolute Neuts (auto) Absolute Nucleated RBC Nucleated RBC % (auto) POC Glucose 171 H 143 H 178 H 07/18/20 07/19/20 07/19/20 20:45 06:06 07:56 WBC 13.8 H RBC 5.28 Hgb 15.9 Hct 49.3 MCV 93.4 MCH 30.1 MCHC 32.3 RDW 13.3 Plt Count 331 MPV 9.7 Immature Gran % (Auto) 0.5 H Neut % (Auto) 78.0 H Lymph % (Auto) 9.4 L [place] % (Auto) 10.0 Eos % (Auto) 1.9 Baso % (Auto) 0.2 Lymph # (Auto) 1.3 [place] # (Auto) 1.4 H Eos # (Auto) 0.3 Baso # (Auto) 0.0 Abs Immat Gran (auto) 0.07 H Absolute Neuts (auto) 10.7 H Absolute Nucleated RBC 0.000 Nucleated RBC % (auto) 0.0 POC Glucose 137 H 128 H Microbiology Microbiology Results: Microbiology 07/15/20 07:21 Blood - Venous Blood Culture - Preliminary No growth after 48 hours. 07/15/20 07:08 Blood - Venous Blood Culture - Preliminary No growth after 48 hours. Assessment and Plan (1) Diabetes: Status: Acute Assessment and Plan: hospital d#5 69yo M with DM2, HTN, HLD admitted to general surgery service for acute gangrenous cholecystitis POD #3 lap->open cholecystectomy due to extensive adhesions medicine consultation for management of comorbid conditions # HTN - continue lisinopril # HLD - continue statin # DM2, A1c 7.7 - hold OHGs, give correction-dose lispro # acute cholecystitis - pip/dario d#5, POD #3 lap->open CCY, d/c ABX now that source contrlled # VTE ppx - SCDs
== END 2020-07-19 11:26 | disposition home or self-care (01) | DRG 416 ==
LOC: HO.ED 08:43 → HO.S3 14:43
PROVIDERS: Family Medicine; Physician Assistant Surgical; Admitting Provider Surgery; Emergency Provider Emergency Medicine; PCP Internal Medicine; Visit Provider Surgery
PROC: 0FT44ZZ Resection of Gallbladder, Percutaneous Endoscopic Approach (ICD-10-PCS; CPT 47562; principal; 2020-07-16 12:00)
DX: K80.00 Calculus of gallbladder with acute cholecystitis without obstruction (principal); K82.A1 Gangrene of gallbladder in cholecystitis; D72.829 Elevated white blood cell count, unspecified; E78.5 Hyperlipidemia, unspecified; E11.9 Type 2 diabetes mellitus without complications; I10 Essential (primary) hypertension; Z96.653 Presence of artificial knee joint, bilateral; Z87.891 Personal history of nicotine dependence; Z20.828 Contact with and (suspected) exposure to other viral communicable diseases; Z79.84 Long term (current) use of oral hypoglycemic drugs; Z79.891 Long term (current) use of opiate analgesic; Z79.899 Other long term (current) drug therapy
CPT/HCPCS: 36415; 74177; 76705; 80048; 80076; 81001; 82947; 83036; 83605; 83690; 83735; 84484; 85025; 85027; 85610; 85730; 87040; 87635; 88304; 93005; 96361; 96365; 96375; 96376; 99284; 99291; J0131; J1100; J1170; J2250; J2405; J2543; J3010; Q9967

== ENCOUNTER → 2020-07-24 11:28 | Outpatient (BNVA) | payer OTHER, SELFPAY | PROVIDERS: PCP Internal Medicine; Visit Provider Surgery | DX: Z90.49 Acquired absence of other specified parts of digestive tract (principal) | CPT/HCPCS: 99212 ==

== ENCOUNTER → 2020-08-20 09:30 | Outpatient (BNVA) | payer OTHER, SELFPAY | PROVIDERS: PCP Internal Medicine; Visit Provider Surgery | DX: Z48.815 Encounter for surgical aftercare following surgery on the digestive system (principal); Z90.49 Acquired absence of other specified parts of digestive tract | CPT/HCPCS: 99212 ==

== ENCOUNTER 2021-09-09 10:56 | Emergency (ER) | payer OTHER, SELFPAY ==
--- NOTE | ~2021-09-09 | CT_ITS ---
EXAMINATION: CT ABDOMEN AND PELVIS WITHOUT CONTRAST CLINICAL INFORMATION: Right upper quadrant pain, nausea and dizziness COMPARISON: Previous abdominal ultrasound and abdominal and pelvic CT July 2020 TECHNIQUE: Multidetector volumetric imaging was performed from the superior aspect of the liver through the pubic symphysis. Sagittal and coronal reformatted images were obtained on the technologist's workstation. This CT examination was performed using dose optimization techniques as appropriate, variously including the following: *Automated exposure control *Adjustment of mA and/or kV according to patient size (this includes techniques or standardized protocols for targeted exams where dose is matched to indication/reason for exam; i.e. extremities or head) *Use of iterative reconstruction technique DLP: 781 mGy-cm FINDINGS: LUNG BASES: There is a small posterior right diaphragmatic hernia containing fat. LIVER, GALLBLADDER, AND BILIARY TREE: The liver is low in attenuation suggestive of fatty infiltration. There are 2 1 cm low-attenuation lesion in the right lobe of the liver axial image 38 and 47 series 3. These are unchanged from previous exams. The gallbladder is been removed. There is no biliary duct dilatation. PANCREAS: Unremarkable. SPLEEN: Unremarkable. ADRENAL GLANDS: Unremarkable. KIDNEYS AND URETERS: 1 cm low-attenuation lesion in the lower pole of the right kidney axial image 40 series 3 is stable. Hounsfield units without contrast measure 20 not compatible with a simple cyst. 1 cm low-attenuation lesion in the lower pole the left kidney axial image 41 series 3 is stable and probably represents a cyst.. BLADDER: There is a mass at the base of the bladder from and enlarged prostate gland. Similar appearing to previous exams. Bladder is otherwise unremarkable. GASTROINTESTINAL TRACT: There is diverticulosis of the colon. The small and large bowel are otherwise unremarkable. The appendix has been removed. ABDOMINAL WALL: There is a small umbilical hernia containing fat. LYMPH NODES: Normal. VASCULAR: Unremarkable. PELVIC VISCERA: The prostate gland is very enlarged and protrudes into the base of the bladder. The prostate gland measures 7.5 x 6.7 x 8.2 cm in dimension. OSSEOUS STRUCTURES: There are degenerative changes of the spine. CT/CT abdomen pelvis wo con IMPRESSION: Very enlarged prostate gland that protrudes into the base of the bladder. Diverticulosis. No evidence of diverticulitis. Fatty liver. Stable small liver and bilateral renal lesions. Fleischner guidelines were followed.
--- NOTE | ~2021-09-09 | XR_ITS ---
EXAMINATION: XR CHEST CLINICAL INFORMATION: Weakness COMPARISON: None TECHNIQUE: Frontal view of the chest was obtained. FINDINGS: No significant abnormality is noted involving the heart, lungs, mediastinum, bony thorax or soft tissues. XR/XR chest 1V IMPRESSION: Unremarkable chest examination.
[2021-09-09 11:24] VITALS: BP 128/77; PULSE 91; RESP 20; TEMP 36.6; O2SAT 96; BMI 30.1
--- NOTE | 2021-09-09 11:29 | ECG_ITS ---
Test Reason : abd pain Blood Pressure : / mmHG Vent. Rate : 086 BPM Atrial Rate : 086 BPM P-R Int : 190 ms QRS Dur : 092 ms QT Int : 346 ms P-R-T Axes : 039 019 044 degrees QTc Int : 414 ms Artifact in tracing Normal sinus rhythm Likely normal EKG When compared with ECG of 15-JUL-2020 07:22, No significant change was found Referred By: Kianna Ram Electronically Signed By:DESIREE MARTE
--- NOTE | 2021-09-09 11:37 | ED_ITS ---
HPI - Abdominal Pain General Chief Complaint: General Medical Stated Complaint: CHILLS ABD PAIN Time Seen by Provider: 09/09/21 11:29 Source: patient Mode of arrival: ambulatory Limitations: no limitations History of Present Illness HPI narrative: dental surgery last week no longer on antibiotics - has implants in [place] elicited complaint: abdominal pain (chills, headache, n/v) Pertinent past history: other (vaccinated x 2) Onset (ago): day(s) (3) Pain Consistency: constant Location: RUQ Severity: moderate Quality: aching Radiation: none Migration to: no migration Exacerbating factors: eating and movement (feels like he is going to pass out when he stands) Relieving factors: nothing Associated symptoms: nausea, vomiting, fever and chills Related Data Home Medications Medication Instructions Recorded Confirmed empagliflozin 10 mg tablet 10 mg PO DAILY 07/15/20 08/20/20 (Jardiance) glipizide 10 mg tablet 1 tab PO BID 07/15/20 08/20/20 lisinopril 10 mg tablet 10 mg PO DAILY 07/15/20 08/20/20 metformin 1,000 mg tablet 1,000 mg PO BID 07/15/20 08/20/20 simvastatin 40 mg tablet 40 mg PO BEDTIME 07/15/20 08/20/20 Previous Rx's Medication Instructions Recorded oxycodone 5 mg tablet 5 mg PO Q4-6H PRN #24 tab 07/18/20 Allergies Allergy/AdvReac Type Severity Reaction Status Date / Time No Known Allergies Allergy Mild NKA Verified 07/15/20 21:11 Review of Systems Review of Systems Constitutional : No Weight loss, No Fever, pos Chills ENT/Mouth : No sore throat, No Rhinorrhea Eyes: No Swelling, No Redness Cardiovascular : No Chest Pain, No SOB, NoEdema Respiratory : No Cough, No Sputum, No Wheezing Gastrointestinal : Positive Nausea, Positive Vomiting, no Diarrhea, positive abdominal Pain, No Hematochezia, No Melena Genitourinary : No Dysuria, No Urinary Frequency, No Hematuria, No Urgency Musculoskeletal : No joint pain, No Myalgias, No Joint Swelling Skin : No Skin Lesions, No rash Neuro : pos Weakness, No Numbness, pos Dizziness, No Headache Psych : No Anxiety/Panic, No Depression Heme/Lymph: No Bruising, No Lymphadenopathy Endocrine : No Polyuria, No Polydipsia All other systems reviewed and are negative. Physical Exam Verdana 4l Vital Signs: Verdana 4d Verdana 4d Vital Signs: Verdana 4d Verdana 4Bd Last Vital Signs Verdana 4d Telephoner New 4d Telephoner New 4d Temp 97.9 F 09/09/21 11:24 Telephoner New 4d Pulse 91 09/09/21 11:24 Telephoner New 4d Resp 20 09/09/21 11:24 BP 128/77 09/09/21 11:24 Pulse Ox 96 09/09/21 11:24 BMI result Body Mass Index 30.1 Appearance: Alert. Oriented X3. No acute distress. Eyes: Pupils equal, round and reactive to light. ENT: Pharynx normal. Neck: Normal inspection. Neck supple. CVS: Normal heart rate and rhythm. Pulses normal. Respiratory: No respiratory distress. Breath sounds normal. Abdomen: Soft and moderate RUQ ttp no rebound Rectal: no prostate ttp it is enlarged but has no ttp Skin: Skin warm and dry. Normal skin color. Normal skin turgor. Extremities: No lower extremity edema. No calf ttp Neuro: Oriented X 3. No motor deficit. No sensory deficit. Course Course Course Narrative: no acute findings, will ambulate and see how he feels, prostate is enlarged could be mild prostatitis - but no WBC count and afebrile here, will perform digital exam will ambulate after fluids - mild dehydration does not meet requirements for ABEL feels better ambulating, negative CT scan chronic BPH - no issues urinating no WBC count no shift, no pneumonia, neg lactic acid, no signs of infection in mouth, negative for COVID, negative prostate tenderness on exam stable for DC after 2L of IVF up and walking states he feels better MDM - Abdominal Pain MDM Narrative Medical decision making narrative: 71 yo male with hx of DM, vaccinated x 2, prior cholecystectomy in 2019 comes in with 3 days of chills, n/v abdominal pain - recent dental work but no longer on abx at this time he feels very weak and near syncope with standing will need labs, cultures, lactic acid, hydration, IV morphine for pain, CT scan for infection, COVID swab. Dispo per results and findings. Lab Data Result diagrams: 09/09/21 12:24 09/09/21 12:24 Labs: Lab Results 09/09/21 09/09/21 09/09/21 Range/Units 11:53 12:07 12:24 WBC 10.5 (4.8-10.8) X10*3/uL RBC 5.09 (4.60-5.80) X10*6/uL Hgb 15.4 (14.0-18.0) g/dl Hct 46.5 (42.0-52.0) % MCV 91.4 (80.0-98.0) fL MCH 30.3 (27.0-33.0) pg MCHC 33.1 (31.0-36.0) g/dl RDW 12.7 (11.0-16.0) % Plt Count 283 (160-400) X10*3/uL MPV 9.3 L (9.4-12.4) fL Immature Gran % (Auto) 0.4 (0.0-0.4) % Neut % (Auto) 63.0 (45-73) % Lymph % (Auto) 23.3 (20-40) % Denali % (Auto) 10.3 (2-11) % Eos % (Auto) 2.5 (0-4) % Baso % (Auto) 0.5 (0-2) % Lymph # (Auto) 2.4 (1.2-4.9) X10*3/uL Denali # (Auto) 1.1 (0.1-1.2) X10*3/uL Eos # (Auto) 0.3 (0.0-0.4) X10*3/uL Baso # (Auto) 0.1 (0.0-0.2) X10*3/uL Abs Immat Gran (auto) 0.04 H (0.00-0.03) X10*3/uL Absolute Neuts (auto) 6.6 (2.0-8.3) x10*3/uL Absolute Nucleated RBC 0.000 (0.0-0.012) X10*3/uL Nucleated RBC % (auto) 0.0 (0.0-0.2) /100WBC Sodium (135-145) mmol/L Potassium (3.3-5.1) mmol/L Chloride (96-108) mmol/L Carbon Dioxide (22-29) mmol/L Anion Gap (12-20) BUN (9-16) mg/dL Creatinine (0.5-1.4) mg/dL Estim Creat Clear Calc Estimated GFR Random Glucose (60-115) mg/dL Lactic Acid (0.5-2.0) mmol/L Calcium (8.4-10.2) mg/dL Magnesium (1.6-2.6) mg/dL Ferritin (20-250) ng/mL Total Bilirubin (0.0-1.0) mg/dL Direct Bilirubin (0.0-0.5) mg/dL AST (5-37) U/L ALT (0-40) U/L Alkaline Phosphatase (39-117) U/L Lactate Dehydrogenase (118-273) U/L Troponin I High Sens (<3.5-35.0) ng/L Total Protein (6.5-8.0) g/dL Albumin (3.5-5.0) g/dL Lipase (8-78) U/L Urine Color YELLOW Urine Appearance CLEAR Urine pH 6.0 (5.0-8.0) Ur Specific Alba 1.025 (1.005-1.025) Urine Protein 1+ H (NEG-TRACE) MG/DL Urine Glucose (UA) >=1000 H (NEG) MG/DL Urine Ketones 15 (NEG) MG/DL Urine Blood NEG (NEG) Urine Nitrite NEG (NEG) Ur Leukocyte Esterase NEG (NEG) Urine RBC 0 (0) /HPF Urine WBC 0-2 (0-4) /HPF Ur Squamous Epith Cells NONE /LPF Urine Bacteria NONE /LPF Urine Mucus 2+ /LPF COVID-19 (BABATUNDE) Negative (Negative) COVID-19 Clin Com See Note 09/09/21 09/09/21 09/09/21 Range/Units 12:24 12:24 12:24 WBC (4.8-10.8) X10*3/uL RBC (4.60-5.80) X10*6/uL Hgb (14.0-18.0) g/dl Hct (42.0-52.0) % MCV (80.0-98.0) fL MCH (27.0-33.0) pg MCHC (31.0-36.0) g/dl RDW (11.0-16.0) % Plt Count (160-400) X10*3/uL MPV (9.4-12.4) fL Immature Gran % (Auto) (0.0-0.4) % Neut % (Auto) (45-73) % Lymph % (Auto) (20-40) % Den[place] % (Auto) (2-11) % Eos % (Auto) (0-4) % Baso % (Auto) (0-2) % Lymph # (Auto) (1.2-4.9) X10*3/uL Den[place] # (Auto) (0.1-1.2) X10*3/uL Eos # (Auto) (0.0-0.4) X10*3/uL Baso # (Auto) (0.0-0.2) X10*3/uL Abs Immat Gran (auto) (0.00-0.03) X10*3/uL Absolute Neuts (auto) (2.0-8.3) x10*3/uL Absolute Nucleated RBC (0.0-0.012) X10*3/uL Nucleated RBC % (auto) (0.0-0.2) /100WBC Sodium 135 (135-145) mmol/L Potassium 4.3 (3.3-5.1) mmol/L Chloride 104 (96-108) mmol/L Carbon Dioxide 21 L (22-29) mmol/L Anion Gap 14 (12-20) BUN 22 H (9-16) mg/dL Creatinine 1.50 H (0.5-1.4) mg/dL Estim Creat Clear Calc 50.8 Estimated GFR 46 Random Glucose 80 D (60-115) mg/dL Lactic Acid 1.2 (0.5-2.0) mmol/L Calcium 9.3 D (8.4-10.2) mg/dL Magnesium 2.1 (1.6-2.6) mg/dL Ferritin 217 (20-250) ng/mL Total Bilirubin 1.7 H (0.0-1.0) mg/dL Direct Bilirubin 0.6 H (0.0-0.5) mg/dL AST 22 (5-37) U/L ALT 36 (0-40) U/L Alkaline Phosphatase 62 D (39-117) U/L Lactate Dehydrogenase 168 (118-273) U/L Troponin I High Sens 3.5 (<3.5-35.0) ng/L Total Protein 6.9 (6.5-8.0) g/dL Albumin 4.1 (3.5-5.0) g/dL Lipase 41 (8-78) U/L Urine Color Urine Appearance Urine pH (5.0-8.0) Ur Specific Alba (1.005-1.025) Urine Protein (NEG-TRACE) MG/DL Urine Glucose (UA) (NEG) MG/DL Urine Ketones (NEG) MG/DL Urine Blood (NEG) Urine Nitrite (NEG) Ur Leukocyte Esterase (NEG) Urine RBC (0) /HPF Urine WBC (0-4) /HPF Ur Squamous Epith Cells /LPF Urine Bacteria /LPF Urine Mucus /LPF COVID-19 (BABATUNDE) (Negative) COVID-19 Clin Com ECG Data Attestation: I personally reviewed and interpreted this ECG as follows: ECG interpretation date: 09/09/21 ECG interpretation time: 11:51 Interpretation: Rate: 86 Rhythm: NSR Ethel: normal Normal P waves. Normal BELÉN. Normal QRS complex. ST T wave : normal no DEJAN qTC: normal prior studies: no acute ischemia The study has been interpreted contemporaneously by me. . Discharge Plan Discharge Clinical Impression: Acute dehydration Patient Disposition: Home, Self-Care Instructions: Dehydration (ED) Additional Instructions: return to ED for any worsening symptoms or concerns Very enlarged prostate gland that protrudes into the base of the bladder. Diverticulosis. No evidence of diverticulitis. Fatty liver. Stable small liver and bilateral renal lesions.? NEGATIVE FOR COVID, NO PNEUMONIA ON CHEST XRAY, NO UTI, CT SCAN OF ABDOMEN NORMAL, KIDNEY FUNCTION MILDLY UP BY 3 POINTS GIVEN 2 BAGS OF IVF, NEGATIVE EKG AND NORMAL HEART MARKERS NO PROSTATE TENDERNESS ON EXAM DO NOT TAKE METFORMIN TONIGHT. DO NOT TAKE IBUPROFEN FOR THE NEXT TWO DAYS ONLY TYLENOL RECHECK KIDNEY FUNCTION IN 2 DAYS WITH PCP HOLD LISINOPRIL WELL FOR 2 DAYS Prescriptions: No Action glipizide 10 mg tablet 1 tab PO BID 0RF simvastatin 40 mg tablet 40 mg PO BEDTIME 0RF metformin 1,000 mg tablet 1,000 mg PO BID 0RF lisinopril 10 mg tablet 10 mg PO DAILY 0RF Jardiance 10 mg tablet 10 mg PO DAILY 0RF oxycodone 5 mg tablet 5 mg PO Q4-6H PRN (Reason: pain) Qty: 24 0RF Referrals: Sarah Moya MD [Primary Care Provider] - 2 days (RECHECK KIDNEY FUNCTION) [facility] Past Medical History Attestation statement: The following information was validated with the patient. Medical History Bilateral knee pain Diabetes HTN (hypertension) Hyperlipidemia Surgical History History of appendectomy History of bilateral knee arthroplasty Social History Social History Household Members: Spouse Housing: House Do you presently have visiting nurse or other home services: No Alcohol intake: current Alcohol intake frequency: 3 or more drinks per day Alcohol type: beer Advance Directives: Yes Advance Directives on File: Yes Advance Directives Date on File: 07/22/20 service: Yes Current occupational status: retired
[2021-09-09 12:30] LABS: MANUAL DIFF FLAG NO
[2021-09-09] MEDS: 0.9 % Sodium Chloride 1,000 ML 999 ML IVCONT (12:31)
[2021-09-09 12:32] LABS: Basophils Absolute Auto 0.1 X10*3/uL (0.0-0.2); Basophils Percent Auto 0.5 % (0-2); Eosinophils Absolute Auto 0.3 X10*3/uL (0.0-0.4); Eosinophils Percent Auto 2.5 % (0-4); Hematocrit 46.5 % (42.0-52.0); Hemoglobin 15.4 g/dl (14.0-18.0); Imm Gran Abs Auto 0.04 X10*3/uL (0.00-0.03); Imm Gran Pct Auto 0.4 % (0.0-0.4); Lymphocytes Absolute Auto 2.4 X10*3/uL (1.2-4.9); Lymphocytes Percent Auto 23.3 % (20-40); Mean Corpuscular HGB Conc 33.1 g/dl (31.0-36.0); Mean Corpuscular Hemoglobin 30.3 pg (27.0-33.0); Mean Corpuscular Volume 91.4 fL (80.0-98.0); Mean Platelet Volume 9.3 fL (9.4-12.4); Monocytes Absolute Auto 1.1 X10*3/uL (0.1-1.2); Monocytes Percent Auto 10.3 % (2-11); Neutrophils Absolute Auto 6.6 x10*3/uL (2.0-8.3); Platelet Count 283 X10*3/uL (160-400); Red Blood Count 5.09 X10*6/uL (4.60-5.80); Red Cell Distribution Width 12.7 % (11.0-16.0); White Blood Count 10.5 X10*3/uL (4.8-10.8)
[2021-09-09] MEDS: Morphine Sulfate 4 MG/ML CARTRIDGE IVPUSH (12:32)
[2021-09-09] MEDS: ondansetron HCL 4 MG/2 ML VIAL IVPUSH (12:32)
[2021-09-09 12:38] LABS: Appearance Urine CLEAR; Color Urine YELLOW; Glucose Urine UA >=1000 MG/DL (NEG); Leukocyte Esterase Urine NEG (NEG); Nitrite Urine NEG (NEG); Specific Gravity - Urine 1.025 (1.005-1.025); UACC Culture Trigger NO; Urine Blood NEG (NEG); Urine Ketones 15 MG/DL (NEG); Urine Protein 1+ MG/DL (NEG-TRACE)
[2021-09-09 12:48] LABS: COVID-19 Test Negative (Negative)
[2021-09-09 12:48] LABS: Lactic Acid 1.2 mmol/L (0.5-2.0)
[2021-09-09 12:50] LABS: Mucus Urine 2+ /LPF; RBC Urine 0 /HPF (0); WBC Urine 0-2 /HPF (0-4)
[2021-09-09 12:54] LABS: Alanine Aminotransferase 36 U/L (0-40); Albumin Level 4.1 g/dL (3.5-5.0); Alkaline Phosphatase 62 U/L (39-117); Anion Gap 14 (12-20); Aspartate Amino Transferase 22 U/L (5-37); Bilirubin Direct 0.6 mg/dL (0.0-0.5); Bilirubin Total 1.7 mg/dL (0.0-1.0); Blood Urea Nitrogen 22 mg/dL (9-16); Calcium 9.3 mg/dL (8.4-10.2); Carbon Dioxide 21 mmol/L (22-29); Chloride 104 mmol/L (96-108); Creatinine Clr Calc Pharmacy 50.8; Estimated Glomerular Filt Rate 46; Glucose Random 80 mg/dL (60-115); Lactate Dehydrogenase 168 U/L (118-273); Lipase 41 U/L (8-78); Magnesium 2.1 mg/dL (1.6-2.6); Potassium 4.3 mmol/L (3.3-5.1); Sodium 135 mmol/L (135-145); Total Protein 6.9 g/dL (6.5-8.0)
[2021-09-09 12:57] LABS: Troponin-I High Sensitivity 3.5 ng/L (<3.5-35.0)
[2021-09-09] MEDS: 0.9 % Sodium Chloride 1,000 ML 999 ML IV (13:35)
[2021-09-09 14:16] LABS: Ferritin 217 ng/mL (20-250)
[2021-09-09 15:09] VITALS: BP 111/69; PULSE 74; RESP 12; TEMP 36.6; O2SAT 99
== END 2021-09-09 15:32 | disposition home or self-care (01) ==
PROVIDERS: Emergency Provider Emergency Medicine; PCP Internal Medicine
DX: E86.0 Dehydration (principal); Z20.822 Contact with and (suspected) exposure to COVID-19; R11.2 Nausea with vomiting, unspecified; E11.9 Type 2 diabetes mellitus without complications; I10 Essential (primary) hypertension; E78.5 Hyperlipidemia, unspecified
CPT/HCPCS: 36415; 71045; 74176; 80048; 80076; 81001; 82728; 83605; 83615; 83690; 83735; 84484; 85025; 87040; 87635; 93005; 96361; 96374; 96375; 99284; J2270; J2405